=== PATIENT | male | born 1930 | race Caucasian/White ===

== ENCOUNTER 2017-05-08 17:07 | Inpatient (IN) | payer OTHER ==
[~2017-05-08] VITALS: Ht 175.3 cm; Wt 78.3 kg
[2017-05-08] MEDS ORDERED: CEFTRIAXONE SOD INJ 1 GM ADDVIAL IV STA (17:20)
[2017-05-08] MEDS ORDERED: AZITHROMYCIN 250 MG TAB PO STA (17:20)
[2017-05-08] MEDS ORDERED: METHYLPREDNISOLONE 125 MG VIAL IV STA (17:20)
--- NOTE | 2017-05-08 17:24 | EMERGENCY ROOM VISIT NOTE ---
History Report prepared by Lashell: Halima Jimenez Under the Supervision of: Dr. Deven Christianson M.D. First contact with patient: 17:09 Stated Complaint: GEN ILLNESS History of Present Illness The patient is an 87 year old white male with a past medical history of myasthenia gravis, hypertension and BPH who presents to the ED with a cc of persistent flu like symptoms beginning earlier today. EMS reports the patient underwent a right hip replacement surgery 3 weeks ago in [place]. He was taken to [facility] for rehabilitation, but was released home with his daughter recently. The patient states his hip has been feeling well and denies any drainage or redness around the incision site. Today he had trouble getting around and appeared to be wheezing and coughing so EMS was called. Positive productive cough with yellow sputum. Negative shortness of breath, hemoptysis, weakness or swelling in the arms or legs. The patient denies any history of COPD or asthma. He does not wear Oxygen at home. He notes he takes daily Mestinon for his history of MG. Source of History: patient, EMS Onset: earlier today Position: other (global) Timing: other (persistent) Associated Symptoms: + cough, No SOB, No weakness (or swelling in the arms or legs) Review of Systems See HPI for pertinent positives and negatives. A total of ten systems were reviewed and were otherwise negative. Past Medical & Surgical Medical Problems: (1) BPH (benign prostatic hyperplasia) (2) Hypertension (3) Myasthenia gravis Surgical Problems: (1) History of hip replacement Social History Alcohol Use: none Drug Use: none Marital Status: Housing Status: lives with family Occupation Status: retired Current/Historical Medications Scheduled Aspirin (Aspirin Ec), 325 MG PO DAILY Calcium (Calcium), 500 MG PO DAILY Cholecalciferol (Vitamin D3), 2,000 UNITS PO DAILY Finasteride (Proscar), 5 MG PO QPM Zee (Zingiber Officinalis) (Zee Root), 500 MG PO DAILY Glycopyrrolate (Glycopyrrolate), 1 MG PO TIDM Metoprolol Tartrate (Lopressor) (Lopressor), 25 MG PO BID Mycophenolate Mofetil (Cellcept), 1,000 MG PO BID Niacin (Niacin), 250 MG PO DAILY [place]-3 Fatty Acids (Fish Oil), 1,000 MG PO DAILY Potassium Chloride (Micro-K Ext Rel), 10 MEQ PO BIDM Pyridostigmine [place] (Mestinon), 60 MG PO TIDM Tamsulosin Hcl (Flomax), 0.4 MG PO QPM Ubiquinol (Ubiquinol), 100 MG PO DAILY Scheduled PRN Benzonatate (Tessalon Perles), Unknown Dose PO DIRECTED PRN for Cough Allergies Coded Allergies: No Known Allergies (Unverified , 05/08/17) Physical Exam Vital Signs Date Time Temp Pulse Resp B/P (MAP) Pulse Ox O2 Delivery O2 Flow Rate FiO2 05/08/17 18:11 84 05/08/17 18:05 85 18 93 Nasal Cannula 4.0 05/08/17 18:00 84 25 141/81 92 Nebulizer 05/08/17 17:41 93 Nasal Cannula 2.0 05/08/17 17:40 89 Room Air 05/08/17 17:16 37.0 80 20 141/88 93 Room Air Physical Exam GENERAL: Awake, alert, well-appearing, NAD HENT: Normocephalic, atraumatic. Edentulous. EYES: Purulent drainage from the right eye. No conjunctival injection. Sclera non-icteric. NECK: Supple. No nuchal rigidity. FROM. RESPIRATORY: Wheezing throughout, no rhonchi, crackles CARDIAC: RRR, no MRG ABDOMEN: Soft, NTND, BS+ MSK: No chest wall TTP, no LE edema. Incisional scar along right hip, well healing, NVI distally. NEURO: GCS 15, CN 2-12 intact, moves all 4s on command SKIN: No rash or jaundice noted. Medical Decision & Procedures ER Provider Diagnostic Interpretation: Radiology results as stated below per my review and radiologist interpretation: CHEST ONE VIEW PORTABLE CLINICAL HISTORY: 87 years-old Male presenting with EVALUATE RESPIRATORY DISTRESS.DYSPNEA. TECHNIQUE: Portable upright AP view of the chest was obtained. COMPARISON: None. FINDINGS: Prominence and tortuosity of the thoracic aorta. Cardiac silhouette normal in size. Bibasilar opacities, right greater than left. No large effusion or pneumothorax. Irregularity of the proximal metaphysis of the left humerus may relate to prior injury or degenerative change. Upper abdomen normal. IMPRESSION: 1. Bibasilar opacities, right greater than left. This could represent atelectasis, aspiration, or pneumonia. Electronically signed by: Blair Samano M.D. 05/08/2017 6:29 PM Laboratory Results 05/08/17 16:59 Red Blood Count 3.76, Mean Corpuscular Volume 91.8, Mean Corpuscular Hemoglobin 31.1, Mean Corpuscular Hemoglobin Concent 33.9, Mean Platelet Volume 9.9, Neutrophils (%) (Auto) 76.9, Lymphocytes (%) (Auto) 8.6, Monocytes (%) (Auto) 13.6, Eosinophils (%) (Auto) 0.2, Basophils (%) (Auto) 0.1, Neutrophils # (Auto ) 16.30, Lymphocytes # (Auto) 1.82, Monocytes # (Auto) 2.89, Eosinophils # (Auto ) 0.04, Basophils # (Auto) 0.02 05/08/17 16:59 Test 05/08/17 16:59 05/08/17 17:40 05/08/17 18:00 White Blood Count 21.20 K/uL (4.8-10.8) Red Blood Count 3.76 M/uL (4.7-6.1) Hemoglobin 11.7 g/dL (14.0-18.0) Hematocrit 34.5 % (42-52) Mean Corpuscular Volume 91.8 fL (80-100) Mean Corpuscular Hemoglobin 31.1 pg (25-34) Mean Corpuscular Hemoglobin Concent 33.9 g/dl (32-36) Platelet Count 462 K/uL (130-400) Mean Platelet Volume 9.9 fL (7.4-10.4) Neutrophils (%) (Auto) 76.9 % Lymphocytes (%) (Auto) 8.6 % Monocytes (%) (Auto) 13.6 % Eosinophils (%) (Auto) 0.2 % Basophils (%) (Auto) 0.1 % Neutrophils # (Auto) 16.30 K/uL (1.4-6.5) Lymphocytes # (Auto) 1.82 K/uL (1.2-3.4) Monocytes # (Auto) 2.89 K/uL (0.11-0.59) Eosinophils # (Auto) 0.04 K/uL (0-0.5) Basophils # (Auto) 0.02 K/uL (0-0.2) RDW Standard Deviation 45.5 fL (36.4-46.3) RDW Coefficient of Variation 13.8 % (11.5-14.5) Immature Granulocyte % (Auto) 0.6 % Immature Granulocyte # (Auto) 0.13 K/uL (0.00-0.02) Prothrombin Time 11.9 SECONDS (9.0-12.0) Prothromb Time International Ratio 1.1 (0.9-1.1) Activated Partial Thromboplast Time 30.6 SECONDS (21.0-31.0) Partial Thromboplastin Ratio 1.2 Anion Gap 10.0 mmol/L (3-11) Est Creatinine Clear Calc Drug Dose 85.8 ml/min Estimated GFR () 104.1 Estimated GFR (Non- 89.9 BUN/Creatinine Ratio 17.5 (10-20) Calcium Level 8.6 mg/dl (8.5-10.1) Total Bilirubin 0.4 mg/dl (0.2-1) Aspartate Amino Transf (AST/SGOT) 13 U/L (15-37) Alanine Aminotransferase (ALT/SGPT) 20 U/L (12-78) Alkaline Phosphatase 167 U/L (45-117) Troponin I < 0.015 ng/ml (0-0.045) Pro-B-Type Natriuretic Peptide 1022 pg/ml (0-1800) Total Protein 6.6 gm/dl (6.4-8.2) Albumin 2.5 gm/dl (3.4-5.0) Globulin 4.1 gm/dl (2.5-4.0) Albumin/Globulin Ratio 0.6 (0.9-2) Venous Blood pH 7.47 (7.36-7.41) Venous Blood Partial Pressure CO2 39 mmHg (38.0-50.0) Venous Blood Partial Pressure O2 52 mmHg Venous Blood HCO3 28 mmol/L Venous Blood Oxygen Saturation 86.9 % Venous Blood Base Excess 4.0 mEq/L Laboratory results reviewed by me Medications Administered Medications (Trade) Dose Ordered Sig/Magi Route Start Time Stop Time Status Last Admin Dose Admin Albuterol/ Ipratropium (Duoneb) 12 ml ONE ONCE INH 05/08/17 17:30 05/08/17 17:31 DC 05/08/17 17:30 12 ML Azithromycin (Zithromax Tab) 500 mg NOW STAT PO 05/08/17 17:20 05/08/17 17:25 DC 05/08/17 17:57 500 MG Ceftriaxone Sodium (Rocephin Inj) 1 gm NOW STAT IV 05/08/17 17:20 05/08/17 17:25 DC 05/08/17 17:59 1 GM Methylprednisolone Sodium Succinate (Solu-Medrol IV) 125 mg NOW STAT IV 05/08/17 17:20 05/08/17 17:25 DC 05/08/17 17:59 125 MG ECG Indication: weakness Rate (beats per minute): 89 Rhythm: sinus rhythm Findings: PAC, other (Normal intervals. No STS changes or T-wave inversions. Ectopy seen) ED Course 1713: The patient was evaluated in room A2. A complete history and physical exam was performed. 1739: Nursing informed me the patient has several family members who were sick recently with URI symptoms. 1810: I spoke with the patients family and updated them on the patients results so far. I discussed my recommendation he remain in the hospital for further evaluation and management and he and his family verbalized complete understanding and agreement. 1842: I discussed the patients case with Dr. Covington, [facility]ist. The patient will be further evaluated. Medical Decision The patient is an 87 year old white male with a past medical history of myasthenia gravis, hypertension and BPH who presents to the ED with a cc of flu like symptoms beginning earlier today. Triage Nursing notes reviewed The patient's presentation and history were concerning for shortness of breath. Differential diagnosis: Etiologies such as infections, reactive airway disease, pneumonia, pneumothorax , COPD, CHF, cardiac ischemia, pulmonary embolism, musculoskeletal, gastrointestinal, as well as others were entertained. Patient was seen and evaluated at the bedside. Patient complains of some mild generalized fatigue and upper respiratory type symptoms. At the bedside patient did have some purulent sputum. Purportedly in the field the patient was at 88% was placed on oxygen. Patient did have a recent right total hip replacement completed in [place]. Patient denies any history of DVT or PE, lower extremity swelling or hemoptysis. Given the patient's infectious symptoms along with diffuse wheezing more likely to be infectious in nature especially given his exam. He is at risk for possible PE given his recent travel and surgery however I believe this to be most likely cause this time. Patient did have blood work that was completed along with EKG, troponin, chest x -ray. Patient was given abx and was given duo nebs as well as steroids given his wheezing. Per family members have been URI symptoms throughout the home. He is currently rehabbing and being helped by his daughter and son-in-law given his recent orthopedic surgery. Patient did have a chest x-ray that was closely concerning for atelectasis versus pneumonia versus aspiration. I did touch base with the patient states that he did have a 3 day hospital stay for his right hip and had been in inpatient rehabilitation for approximately 2 weeks. I did discuss with the hospitalists and they will decide about broadening out his antibiotic coverage for healthcare associated pneumonia. Patient white blood cell count was 21. Patient was requiring a touch of oxygen. Patient did get given nebs and Solu- Medrol for his wheezing. Patient did have mild hypokalemia which was repleted as well as mag. I did discuss case with the Hospital the patient was admitted for further evaluation and treatment. Medication Reconcilliation Current Medication List: was personally reviewed by me Blood Pressure Screening Patient's blood pressure: Elevated blood pressure Blood pressure disposition: Referred to PCP Consults Time Called: 1836 Consulting Physician: Shahbaz Stone Hospitalist Returned Call: [phone] I discussed the patients case with Shahbaz Stone Hospitalist. The patient will be further evaluated. Impression Primary Impression: Acute respiratory failure with hypoxia Additional Impressions: Pneumonia Hypokalemia Scribe Attestation The scribe's documentation has been prepared under my direction and personally reviewed by me in its entirety. I confirm that the note above accurately reflects all work, treatment, procedures, and medical decision making performed by me. Departure Information Dispostion Being Evaluated By Hospitalist Problem Qualifiers Additional Impressions: Pneumonia Pneumonia type: due to unspecified organism Laterality: right Lung location : lower lobe of lung Qualified Codes: J18.1 - Lobar pneumonia, unspecified organism
[2017-05-08] MEDS ORDERED: ALBUT/IPRATROP 3MG/0.5MG NEB 3 ML VIAL INH ONE (17:30)
[2017-05-08 17:38] LABS: BASO % 0.1 %; BASO ABS # 0.02 K/uL (0-0.2); COMPLETE YES; EOS % 0.2 %; HEMATOCRIT 34.5 % (42-52); IG% 0.6 %; LYMPH % 8.6 %; LYMPH ABS # 1.82 K/uL (1.2-3.4); MEAN CELL VOLUME 91.8 fL (80-100); MEAN CORPUSCULAR HEMOGLOBIN 31.1 pg (25-34); MEAN CORPUSCULAR HGB CONC 33.9 g/dl (32-36); MEAN PLATELET VOLUME 9.9 fL (7.4-10.4); MONO % 13.6 %; NEUT % 76.9 %; PLATELET COUNT 462 K/uL (130-400); RED BLOOD COUNT 3.76 M/uL (4.7-6.1)
[2017-05-08 17:45] LABS: INR 1.1 (0.9-1.1); PARTIAL THROMBOPLASTIN RATIO 1.2; PROTHROMBIN TIME (PATIENT) 11.9 SECONDS (9.0-12.0)
[2017-05-08 17:46] LABS: ALT/SGPT 20 U/L (12-78); AST/SGOT 13 U/L (15-37); BLOOD UREA NITROGEN 11 mg/dl (7-18); BUN/CREATININE RATIO 17.5 (10-20); CALCIUM 8.6 mg/dl (8.5-10.1); CARBON DIOXIDE 26 mmol/L (21-32); CHLORIDE 98 mmol/L (98-107); CREATININE 0.63 mg/dl (0.60-1.40); GLUCOSE 135 mg/dl (70-99); SODIUM 134 mmol/L (136-145)
[2017-05-08 17:50] LABS: VEN BLD GAS O2 SATURATION 86.9 %
[2017-05-08 17:51] LABS: ALB/GLOB RATIO 0.6 (0.9-2); ALKALINE PHOSPHATASE 167 U/L (45-117)
[2017-05-08] MEDS ORDERED: PYRI60TA2 PO (18:01)
[2017-05-08] MEDS ORDERED: UBIQ1CAP8 PO (18:01)
[2017-05-08] MEDS ORDERED: NIAC250T8 PO (18:01)
[2017-05-08] MEDS ORDERED: TAMS0.4C38 PO (18:01)
[2017-05-08] MEDS ORDERED: OMEG10002 PO (18:01)
[2017-05-08] MEDS ORDERED: METO25TA56 PO (18:01)
[2017-05-08] MEDS ORDERED: BENZ100C84 PO (18:01)
[2017-05-08] MEDS ORDERED: ASPI325T39 PO (18:01)
[2017-05-08] MEDS ORDERED: CALC500T83 PO (18:01)
[2017-05-08] MEDS ORDERED: RBN1 PO (18:01)
[2017-05-08] MEDS ORDERED: GING500C2 PO (18:01)
[2017-05-08] MEDS ORDERED: MYCO500T4 PO (18:01)
[2017-05-08] MEDS ORDERED: POTA10CA28 PO (18:01)
[2017-05-08] MEDS ORDERED: FINA5TAB4 PO (18:01)
[2017-05-08] MEDS ORDERED: CHOL20007 PO (18:01)
[2017-05-08 18:05] VITALS: PULSE 85; O2SAT 93
[2017-05-08] MEDS ORDERED: MAGNESIUM OXIDE 400 MG TAB PO STA (18:17)
[2017-05-08] MEDS ORDERED: POTASSIUM CHLORIDE 20 MEQ TABCR PO STA (18:17)
--- NOTE | 2017-05-08 18:31 | DIAGNOSTIC IMAGING REPORT ---
CHEST ONE VIEW PORTABLE CLINICAL HISTORY: 87 years-old Male presenting with EVALUATE RESPIRATORY DISTRESS.DYSPNEA. TECHNIQUE: Portable upright AP view of the chest was obtained. COMPARISON: None. FINDINGS: Prominence and tortuosity of the thoracic aorta. Cardiac silhouette normal in size. Bibasilar opacities, right greater than left. No large effusion or pneumothorax. Irregularity of the proximal metaphysis of the left humerus may relate to prior injury or degenerative change. Upper abdomen normal. IMPRESSION: 1. Bibasilar opacities, right greater than left. This could represent atelectasis, aspiration, or pneumonia. Electronically signed by: Blair Samano M.D. 05/08/2017 6:29 PM Dictated Date/Time: 05/08/2017 6:28 PM
[2017-05-08] MEDS ORDERED: ACETAMINOPHEN 325 MG TAB PO PRN (20:15)
[2017-05-08] MEDS ORDERED: VANCOMYCIN CONSULT ACTIVE PRN (21:15)
--- NOTE | 2017-05-08 21:27 | History and Physical ---
History & Physical Date & Time of Service: May 08, 2017 at 20:34 Chief Complaint: Gen Illness Primary Care Physician: No Doctor, Assigned History of Present Illness Source: patient, family, hospital records 87 year old male with a past medical history of myasthenia gravis, hypertension and BPH, recent right hip surgery presents to the ED with of greenish productive cough. Pt had a hip surgery done 3 weeks ago [facility] He was transferred to [facility] for rehab. As per family pt has been doing well with rehab. but in the last few days he has been having a greenish productive cough that is getting worst associated with wheezing and chills. Pt said that today he feels very weak and nauseated. Granddaughter said that he had diarrhea yesterday. Pt has been around family member with URI symptoms. Denies any chest pain, palpitation, fever, dizziness and SOB. Past Medical/Surgical History BPH Myasthenia gravis HTN Right Hip replacement Social History Smoking Status: Former Smoker Drug Use: none Marital Status: Occupational Status: retired Allergies Coded Allergies: No Known Allergies (Unverified , 05/08/17) Home Medications Scheduled Aspirin (Aspirin Ec), 325 MG PO DAILY Calcium (Calcium), 500 MG PO DAILY Cholecalciferol (Vitamin D3), 2,000 UNITS PO DAILY Finasteride (Proscar), 5 MG PO QPM Zee (Zingiber Officinalis) (Zee Root), 500 MG PO DAILY Glycopyrrolate (Glycopyrrolate), 1 MG PO TIDM Metoprolol Tartrate (Lopressor) (Lopressor), 25 MG PO BID Mycophenolate Mofetil (Cellcept), 1,000 MG PO BID Niacin (Niacin), 250 MG PO DAILY [place]-3 Fatty Acids (Fish Oil), 1,000 MG PO DAILY Potassium Chloride (Micro-K Ext Rel), 10 MEQ PO BIDM Pyridostigmine [place] (Mestinon), 60 MG PO TIDM Tamsulosin Hcl (Flomax), 0.4 MG PO QPM Ubiquinol (Ubiquinol), 100 MG PO DAILY Scheduled PRN Benzonatate (Tessalon Perles), Unknown Dose PO DIRECTED PRN for Cough Review of Systems Constitutional: + chills, + weakness, + fatigue, No fever Eyes: No worsening of vision ENT: + nasal symptoms (nasal congestion), + problem reported (Decrease hearing function), No sore throat Respiratory: + cough, + sputum, + wheezing Cardiovascular: No chest pain, No claudication, No palpitations Abdomen: + nausea, No pain, No vomiting Musculoskeletal: + joint pain, No calf pain Genitourinary - Male: No dysuria Neurologic: No memory loss, No paralysis Endocrine: No excessive thirst Hematologic / Lymphatic: No abnormal bleeding/bruising Integumentary: No rash, No itch Physical Exam Vital Signs Date Time Temp Pulse Resp B/P (MAP) Pulse Ox O2 Delivery O2 Flow Rate FiO2 05/08/17 19:08 117 30 188/59 91 Nasal Cannula 2.0 05/08/17 18:11 84 05/08/17 18:05 85 18 93 Nasal Cannula 4.0 05/08/17 18:00 84 25 141/81 92 Nebulizer 05/08/17 17:41 93 Nasal Cannula 2.0 05/08/17 17:40 89 Room Air 05/08/17 17:16 37.0 80 20 141/88 93 Room Air General Appearance: WD/WN, no apparent distress Head: normocephalic, atraumatic Eyes: PERRL, EOMI ENT: + nasal congestion, + pertinent finding (decrease hearing function) Neck: no JVD, trachea midline Respiratory/Chest: no respiratory distress, no accessory muscle use, + wheezing Cardiovascular: no JVD, + tachycardia Abdomen/GI: normal bowel sounds, non tender, soft Back: no CVA tenderness Extremities/Musculoskelatal: no calf tenderness Neurologic/Psych: no motor/sensory deficits, alert, normal mood/affect Skin: warm/dry, no rash Diagnostics Laboratory Results Results Past 24 Hours Test 05/08/17 16:59 05/08/17 17:40 05/08/17 18:00 Range/Units White Blood Count 21.20 4.8-10.8 K/uL Red Blood Count 3.76 4.7-6.1 M/uL Hemoglobin 11.7 14.0-18.0 g/dL Hematocrit 34.5 42-52 % Mean Corpuscular Volume 91.8 80-100 fL Mean Corpuscular Hemoglobin 31.1 25-34 pg Mean Corpuscular Hemoglobin Concent 33.9 32-36 g/dl Platelet Count 462 130-400 K/uL Mean Platelet Volume 9.9 7.4-10.4 fL Neutrophils (%) (Auto) 76.9 % Lymphocytes (%) (Auto) 8.6 % Monocytes (%) (Auto) 13.6 % Eosinophils (%) (Auto) 0.2 % Basophils (%) (Auto) 0.1 % Neutrophils # (Auto) 16.30 1.4-6.5 K/uL Lymphocytes # (Auto) 1.82 1.2-3.4 K/uL Monocytes # (Auto) 2.89 0.11-0.59 K/uL Eosinophils # (Auto) 0.04 0-0.5 K/uL Basophils # (Auto) 0.02 0-0.2 K/uL RDW Standard Deviation 45.5 36.4-46.3 fL RDW Coefficient of Variation 13.8 11.5-14.5 % Immature Granulocyte % (Auto) 0.6 % Immature Granulocyte # (Auto) 0.13 0.00-0.02 K/uL Prothrombin Time 11.9 9.0-12.0 SECONDS Prothromb Time International Ratio 1.1 0.9-1.1 Activated Partial Thromboplast Time 30.6 21.0-31.0 SECONDS Partial Thromboplastin Ratio 1.2 Sodium Level 134 136-145 mmol/L Potassium Level 3.0 3.5-5.1 mmol/L Chloride Level 98 98-107 mmol/L Carbon Dioxide Level 26 21-32 mmol/L Anion Gap 10.0 3-11 mmol/L Blood Urea Nitrogen 11 7-18 mg/dl Creatinine 0.63 0.60-1.40 mg/dl Est Creatinine Clear Calc Drug Dose 85.8 ml/min Estimated GFR () 104.1 Estimated GFR (Non- 89.9 BUN/Creatinine Ratio 17.5 10-20 Random Glucose 135 70-99 mg/dl Calcium Level 8.6 8.5-10.1 mg/dl Total Bilirubin 0.4 0.2-1 mg/dl Aspartate Amino Transf (AST/SGOT) 13 15-37 U/L Alanine Aminotransferase (ALT/SGPT) 20 12-78 U/L Alkaline Phosphatase 167 45-117 U/L Troponin I < 0.015 0-0.045 ng/ml Pro-B-Type Natriuretic Peptide 1022 0-1800 pg/ml Total Protein 6.6 6.4-8.2 gm/dl Albumin 2.5 3.4-5.0 gm/dl Globulin 4.1 2.5-4.0 gm/dl Albumin/Globulin Ratio 0.6 0.9-2 Venous Blood pH 7.47 7.36-7.41 Venous Blood Partial Pressure CO2 39 38.0-50.0 mmHg Venous Blood Partial Pressure O2 52 mmHg Venous Blood HCO3 28 mmol/L Venous Blood Oxygen Saturation 86.9 % Venous Blood Base Excess 4.0 mEq/L Influenza Type A Antigen Neg for Influ A NEG Influenza Type B Antigen Neg for Influ B NEG Microbiology Results 05/08/17 Blood Culture, Ordered Pending 05/08/17 Blood Culture, Ordered Pending 05/08/17 Group A Streptococcus Screen - Final, Resulted SPECIMEN NEGATIVE FOR GROUP A BETA ST... 05/08/17 Group A Streptococcus Screen (ANNIKA), Resulted Pending Diagnostic Radiology CHEST ONE VIEW PORTABLE CLINICAL HISTORY: 87 years-old Male presenting with EVALUATE RESPIRATORY DISTRESS.DYSPNEA. TECHNIQUE: Portable upright AP view of the chest was obtained. COMPARISON: None. FINDINGS: Prominence and tortuosity of the thoracic aorta. Cardiac silhouette normal in size. Bibasilar opacities, right greater than left. No large effusion or pneumothorax. Irregularity of the proximal metaphysis of the left humerus may relate to prior injury or degenerative change. Upper abdomen normal. IMPRESSION: 1. Bibasilar opacities, right greater than left. This could represent atelectasis, aspiration, or pneumonia. Electronically signed by: Blair Samano M.D. 05/08/2017 6:29 PM Dictated Date/Time: 05/08/2017 6:28 PM The status of this report is Signed. Impression Assessment and Plan Sepsis Pneumonia Meet sepsis criteria on admission present with Tachycardia, tachypneic, Elevated WBC CXR showed bibasilar opacities, right greater than left flu negative Received Rocephin and Zithromax and solumedrol 125mg in the ER Since coming from inpatient rehab and has hip surgery 3 weeks ago will change abx Will do Vanco and continue rocephin Check Blood cx and sputum cx Will do prednisone, guaifenesin and duoneb treatment Hypokalemia K replaced Monitor BMP Myasthenia Gravis On pyridostigmine 60mg TID taking with Glycopyrrolate 1 mg TID, cellcept 1g BID Stable Right Hip replacement stable Continue PT/OT HTN Continue metoprolol Monitor BP BPH Continue flomax and finasteride DVT px on Lovenox subq Code status Full no mech ventilation as per my discussion to pt and family Disposition Will go back to [facility] once medically stable Level of Care Med/Surg Resuscitation Status FULL NO MECH VENTILATION VTE Prophylaxis VTE Risk Assessment Done? Y/N: Yes Risk Level: Moderate Given or contraindicated: Enoxaparin (Lovenox)SQ
[2017-05-08] MEDS ORDERED: VANCOMYCIN INJ 2,000 MG in SODIUM CHLORIDE 0.9% 500ML 500 ML IV SCH (22:00)
--- NOTE | 2017-05-08 22:04 | Pharmacy Progress Note ---
Pharmacy Antibiotic Consult Date of Service: May 08, 2017. Pharmacy Dosing Scope Pharmacy is consulted to initiate vancomycin IV dosing therapy, order appropriate labs and adjust drug dose/frequency. Subjective The patient is a 87 year old male admitted on May 08, 2017 at 20:10 with possible pnx, sepsis. Recent hospital stay for hip replacement 3 weeks ago, then rehab at [facility]. Objective Height (Feet): 5 Height (Inches): 9 Weight (Kilograms): 83.10 Lab Results (24hrs): Test 05/08/17 16:59 05/08/17 17:40 05/08/17 18:00 White Blood Count 21.20 K/uL (4.8-10.8) Red Blood Count 3.76 M/uL (4.7-6.1) Hemoglobin 11.7 g/dL (14.0-18.0) Hematocrit 34.5 % (42-52) Mean Corpuscular Volume 91.8 fL (80-100) Mean Corpuscular Hemoglobin 31.1 pg (25-34) Mean Corpuscular Hemoglobin Concent 33.9 g/dl (32-36) Platelet Count 462 K/uL (130-400) Mean Platelet Volume 9.9 fL (7.4-10.4) Neutrophils (%) (Auto) 76.9 % Lymphocytes (%) (Auto) 8.6 % Monocytes (%) (Auto) 13.6 % Eosinophils (%) (Auto) 0.2 % Basophils (%) (Auto) 0.1 % Neutrophils # (Auto) 16.30 K/uL (1.4-6.5) Lymphocytes # (Auto) 1.82 K/uL (1.2-3.4) Monocytes # (Auto) 2.89 K/uL (0.11-0.59) Eosinophils # (Auto) 0.04 K/uL (0-0.5) Basophils # (Auto) 0.02 K/uL (0-0.2) RDW Standard Deviation 45.5 fL (36.4-46.3) RDW Coefficient of Variation 13.8 % (11.5-14.5) Immature Granulocyte % (Auto) 0.6 % Immature Granulocyte # (Auto) 0.13 K/uL (0.00-0.02) Prothrombin Time 11.9 SECONDS (9.0-12.0) Prothromb Time International Ratio 1.1 (0.9-1.1) Activated Partial Thromboplast Time 30.6 SECONDS (21.0-31.0) Partial Thromboplastin Ratio 1.2 Sodium Level 134 mmol/L (136-145) Potassium Level 3.0 mmol/L (3.5-5.1) Chloride Level 98 mmol/L (98-107) Carbon Dioxide Level 26 mmol/L (21-32) Anion Gap 10.0 mmol/L (3-11) Blood Urea Nitrogen 11 mg/dl (7-18) Creatinine 0.63 mg/dl (0.60-1.40) Est Creatinine Clear Calc Drug Dose 85.8 ml/min Estimated GFR () 104.1 Estimated GFR (Non- 89.9 BUN/Creatinine Ratio 17.5 (10-20) Random Glucose 135 mg/dl (70-99) Calcium Level 8.6 mg/dl (8.5-10.1) Total Bilirubin 0.4 mg/dl (0.2-1) Aspartate Amino Transf (AST/SGOT) 13 U/L (15-37) Alanine Aminotransferase (ALT/SGPT) 20 U/L (12-78) Alkaline Phosphatase 167 U/L (45-117) Troponin I < 0.015 ng/ml (0-0.045) Pro-B-Type Natriuretic Peptide 1022 pg/ml (0-1800) Total Protein 6.6 gm/dl (6.4-8.2) Albumin 2.5 gm/dl (3.4-5.0) Globulin 4.1 gm/dl (2.5-4.0) Albumin/Globulin Ratio 0.6 (0.9-2) Venous Blood pH 7.47 (7.36-7.41) Venous Blood Partial Pressure CO2 39 mmHg (38.0-50.0) Venous Blood Partial Pressure O2 52 mmHg Venous Blood HCO3 28 mmol/L Venous Blood Oxygen Saturation 86.9 % Venous Blood Base Excess 4.0 mEq/L Influenza Type A Antigen Neg for Influ A (NEG) Influenza Type B Antigen Neg for Influ B (NEG) Micro Results: Blood and throat cx are pending. Recent Pertinent Medications Rocephin 1gm IV daily and Zithromax 500mg po x 1 Assessment & Plan Vancomycin: Loading dose: 2000 mg IV X 1 dose (24mg/kg) then: 1250 mg IV every 12 hours. Goal trough level estimate: between 15 - 20 mcg/mL. Peak and trough or random level has been ordered for: 05/10 prior to 1000 dose. Pharmacy will continue to follow and will adjust dose/frequency as necessary. Thank you
[2017-05-08] MEDS: SODIUM CHLORIDE 0.9% 1000ML 1,000 ML IV SCH (22:21)
[2017-05-08] MEDS: TAMSULOSIN HCL 0.4 MG CAP PO SCH (22:54)
[2017-05-08] MEDS: FINASTERIDE 5 MG TAB PO SCH (22:55)
[2017-05-08] MEDS: METOPROLOL TARTRATE 25 MG TAB PO SCH (22:55)
[2017-05-08 23:22] VITALS: BP 132/61; PULSE 101; TEMP 37; O2SAT 95; Ht 175.3 cm; Wt 78.3 kg
[2017-05-08 23:31] LABS: URINE APPEARANCE CLOUDY (CLEAR); URINE BILIRUBIN NEG (NEG); URINE COLOR YELLOW; URINE EPITHELIAL CELL AUTO >30 /lpf (0-5); URINE NITRITE NEG (NEG); UROBILINOGEN NEG (NEG)
[2017-05-08 23:43] LABS: MANUAL MICROSCOPIC REQUIRED? NO; REVIEW REQ? YES
[2017-05-08 23:53] VITALS: BP 136/77; PULSE 84; TEMP 36.8; O2SAT 95
[2017-05-08 23:55] LABS: URINE MUCUS PRESENT (NONE PRSENT); ZZUR CULT IF INDIC CLEAN CATCH YES
[2017-05-09] VITALS (8 sets, daily range): BP systolic 122–126; BP diastolic 65–70; PULSE 62–85; TEMP 36.5–36.9; O2SAT 93–98
[2017-05-09] MEDS: GUAIFENESIN 200 MG TAB PO SCH ×4 (00:03→18:17)
[2017-05-09] MEDS: LEVALBUTEROL 0.63MG/3 ML NEB INH SCH ×4 (01:49→18:51)
[2017-05-09 06:19] LABS: HEMATOCRIT 34.8 % (42-52); MEAN CELL VOLUME 92.8 fL (80-100); MEAN CORPUSCULAR HEMOGLOBIN 30.9 pg (25-34); MEAN CORPUSCULAR HGB CONC 33.3 g/dl (32-36); MEAN PLATELET VOLUME 9.6 fL (7.4-10.4); PLATELET COUNT 431 K/uL (130-400); RED BLOOD COUNT 3.75 M/uL (4.7-6.1); WHITE BLOOD COUNT 21.91 K/uL (4.8-10.8)
[2017-05-09 06:52] LABS: BUN/CREATININE RATIO 18.6 (10-20); CALCIUM 8.9 mg/dl (8.5-10.1); CREATININE 0.58 mg/dl (0.60-1.40); POTASSIUM 3.3 mmol/L (3.5-5.1)
[2017-05-09] MEDS: POTASSIUM CHLORIDE 10 MEQ TABCR PO SCH ×2 (07:39→18:16)
[2017-05-09] MEDS: NIACIN 500 MG TAB IMMEDIATE RELEASE PO SCH (07:39)
[2017-05-09] MEDS: METOPROLOL TARTRATE 25 MG TAB PO SCH ×2 (07:40→20:37)
[2017-05-09] MEDS: ENOXAPARIN 40 MG/0.4 ML SYR SQ SCH (07:40)
[2017-05-09] MEDS: ASPIRIN 325 MG ECTAB PO SCH (08:45)
[2017-05-09] MEDS: GLYCOPYRROLATE 1 MG TAB PO SCH ×3 (08:45→18:16)
[2017-05-09] MEDS ORDERED: NON-FORMULARY MEDICATION (Ubiquinol 100 MG) PO SCH (09:00)
[2017-05-09] MEDS ORDERED: VANCOMYCIN INJ 1,250 MG in SODIUM CHLORIDE 0.9% 250ML 250 ML IV SCH (10:00)
[2017-05-09] MEDS: PYRIDOSTIGMINE BROMIDE 60 MG TAB PO SCH ×3 (10:43→18:17)
[2017-05-09] MEDS: SODIUM CHLORIDE 0.9% 1000ML 1,000 ML IV SCH ×2 (10:43→18:11)
[2017-05-09] MEDS: CEFTRIAXONE SOD INJ 1 GM in DEXTROSE 5% ADD-VANTAGE 50ML 50 ML IV SCH (18:15)
--- NOTE | 2017-05-09 18:25 | Progress Note ---
Medicine Progress Note Date & Time of Visit: May 09, 2017 at ~ 15:00 . Subjective 87-year-old gentleman who spends his [place] in [facility] and [place] in [place]. He fell a few weeks ago and suffered a fracture of his right hip. Daughter lives [place], so he was transferred to [facility] [place] for rehabilitation. Admitted last night with pneumonia. Persistent cough, productive green sputum. No fever. No chest pain or shortness of breath. No nausea, vomiting, diarrhea. . Objective Last 8 Hrs Date Time Temp Pulse Resp B/P (MAP) Pulse Ox O2 Delivery O2 Flow Rate FiO2 05/09/17 15:10 36.5 71 20 126/70 (88) 93 Nasal Cannula 3.0 05/09/17 14:36 85 22 93 Nasal Cannula 3.0 Physical Exam: General- no acute distress ENT- hard of hearing Neck- no JVD Lungs- scattered rhonchi, diffuse moderate wheezing Heart- RRR Abdomen- + BS, soft, nontender Extremities- no pretibial edema or calf tenderness Neuro- alert, oriented . Laboratory Results: Last 24 Hours Test 05/08/17 22:45 05/09/17 06:02 Urine Color YELLOW Urine Appearance CLOUDY Urine pH 5.0 Urine Specific [place] 1.020 Urine Protein TRACE Urine Glucose (UA) NEG Urine Ketones 1+ Urine Occult Blood NEG Urine Nitrite NEG Urine Bilirubin NEG Urine Urobilinogen NEG Urine Leukocyte Esterase TRACE Urine WBC (Auto) 1-5 /hpf Urine RBC (Auto) 0-4 /hpf Urine Hyaline Casts (Auto) 0 /lpf Urine Epithelial Cells (Auto) >30 /lpf Urine Bacteria (Auto) 1+ Urine Renal Epithelial Cells /lpf Urine Crystals CALCIUM OXALATE Urine Mucus PRESENT White Blood Count 21.91 K/uL Red Blood Count 3.75 M/uL Hemoglobin 11.6 g/dL Hematocrit 34.8 % Mean Corpuscular Volume 92.8 fL Mean Corpuscular Hemoglobin 30.9 pg Mean Corpuscular Hemoglobin Concent 33.3 g/dl RDW Standard Deviation 46.9 fL RDW Coefficient of Variation 13.8 % Platelet Count 431 K/uL Mean Platelet Volume 9.6 fL Sodium Level 140 mmol/L Potassium Level 3.3 mmol/L Chloride Level 103 mmol/L Carbon Dioxide Level 29 mmol/L Anion Gap 8.0 mmol/L Blood Urea Nitrogen 11 mg/dl Creatinine 0.58 mg/dl Est Creatinine Clear Calc Drug Dose 93.2 ml/min Estimated GFR () 107.8 Estimated GFR (Non- 93.0 BUN/Creatinine Ratio 18.6 Random Glucose 153 mg/dl Calcium Level 8.9 mg/dl Date/Time Source Procedure Growth Status 05/08/17 21:49 Blood Blood Culture Pending Received 05/08/17 21:43 Blood Blood Culture Pending Received 05/08/17 22:25 Nasal MRSA DNA Surveillance Screen - Final Specimen Negative for MRSA by DNA Probe Complete 05/09/17 07:45 Sputum Expectorated Sputum Gram Stain Pending Received 05/09/17 07:45 Sputum Expectorated Sputum Sputum Culture Pending Received 05/08/17 22:45 Urine , Clean Catch Urine Culture Pending Received Assessment & Plan PNEUMONIA (health-care associated) Presented to ED with cough and shortness of breath. White count elevated. Chest x-ray demonstrated bibasilar densities. Blood cultures obtained in ED. Sputum culture pending. Initially received his azithromycin and ceftriaxone. Antibiotic regimen changed to vancomycin and ceftriaxone in light of recent hospitalizations. Receiving prednisone for associated bronchospasm. Nasal screen for MRSA negative. Therefore, MRSA pneumonia unlikely. Discontinue vancomycin. Add levofloxacin for atypical coverage. HYPOKALEMIA Serum potassium is 3.0. Replace. Follow. HYPERTENSION Hemodynamically stable. Continue metoprolol. MYASTHENIA GRAVIS Hold mycophenolate mofetil in light of current infection. Continue pyridostigmine. BPH Continue tamsulosin. S/P ORIF RIGHT HIP FRACTURE Continue PT/OT as able. VTE PROPHYLAXIS SQ enoxaparin. Ambulate. DISPOSITION Expected return to [facility] to continue rehabilitation once medically stable. . Current Inpatient Medications: Current Inpatient Medications Medications (Trade) Dose Ordered Sig/Magi Route Start Time Stop Time Status Last Admin Dose Admin Acetaminophen (Tylenol Tab) 650 mg Q4H PRN PO 05/08/17 20:15 06/07/17 20:14 Sodium Chloride 1,000 ml @ 80 mls/hr [id number] IV 05/08/17 21:30 06/07/17 21:29 05/09/17 10:43 80 MLS/HR Aspirin (Ecotrin Tab) 325 mg DAILY PO 05/09/17 09:00 06/08/17 08:59 05/09/17 08:45 325 MG Finasteride (Proscar Tab) 5 mg QPM PO 05/08/17 21:00 06/07/17 20:59 05/08/17 22:55 5 MG Metoprolol Tartrate (Lopressor Tab) 25 mg BID PO 05/08/17 21:00 06/07/17 20:59 05/09/17 07:40 25 MG Potassium Chloride (Klor-Con M10) 10 meq BIDM PO 05/09/17 08:00 06/08/17 07:59 05/09/17 07:39 10 MEQ Tamsulosin HCl (Flomax Cap) 0.4 mg QPM PO 05/08/17 21:00 06/07/17 20:59 05/08/17 22:54 0.4 MG Niacin (Niacin Tab) 250 mg DAILY PO 05/09/17 09:00 06/08/17 08:59 05/09/17 07:39 250 MG Guaifenesin (Organidin Nr Tab) 200 mg Q6 PO 05/09/17 00:00 06/08/17 00:00 05/09/17 10:44 200 MG Vancomycin HCl 1250 mg/Sodium Chloride 275 ml @ 125 mls/hr Q12H IV 05/09/17 10:00 05/16/17 09:59 05/09/17 10:43 125 MLS/HR Ceftriaxone Sodium 1 gm/ Dextrose 50 ml @ 100 mls/hr Q24H IV 05/09/17 18:00 05/15/17 17:59 Enoxaparin Sodium (Lovenox Inj) 40 mg QAM SQ 05/09/17 09:00 06/08/17 08:59 05/09/17 07:40 40 MG Vancomycin HCl (Consult) 1 ea UD PRN N/A 05/08/17 21:15 06/07/17 21:14 Prednisone (PredniSONE TAB) 40 mg DAILY PO 05/09/17 09:00 06/08/17 08:59 05/09/17 07:39 40 MG Levalbuterol (Xopenex 0.63 Mg/ 3 Ml Neb) 0.63 mg Q6R INH 05/09/17 03:00 06/08/17 02:59 05/09/17 14:34 0.63 MG Glycopyrrolate (Robinul Tab) 1 mg TIDM PO 05/09/17 08:00 06/08/17 07:59 05/09/17 10:44 1 MG Pyridostigmine [place] (Mestinon Tab) 60 mg TIDM PO 05/09/17 08:00 06/08/17 07:59 05/09/17 10:43 60 MG
[2017-05-09] MEDS: LEVOFLOXACIN / D5W 750 MG in PREMIXED IN D5W 150 ML IV SCH (18:59)
[2017-05-09] MEDS: TAMSULOSIN HCL 0.4 MG CAP PO SCH (20:37)
[2017-05-09] MEDS: FINASTERIDE 5 MG TAB PO SCH (20:37)
[2017-05-10] VITALS (8 sets, daily range): BP systolic 131–148; BP diastolic 62–76; PULSE 65–87; TEMP 36.3–36.4; O2SAT 92–96
[2017-05-10] MEDS: GUAIFENESIN 200 MG TAB PO SCH ×5 (00:15→23:22)
[2017-05-10] MEDS: LEVALBUTEROL 0.63MG/3 ML NEB INH SCH ×4 (01:50→19:52)
[2017-05-10 06:15] LABS: BUN/CREATININE RATIO 27.4 (10-20); CALCIUM 8.2 mg/dl (8.5-10.1); CREATININE 0.66 mg/dl (0.60-1.40); POTASSIUM 3.4 mmol/L (3.5-5.1)
[2017-05-10] MEDS: PYRIDOSTIGMINE BROMIDE 60 MG TAB PO SCH ×3 (08:38→17:17)
[2017-05-10] MEDS: ASPIRIN 325 MG ECTAB PO SCH (08:38)
[2017-05-10] MEDS: ENOXAPARIN 40 MG/0.4 ML SYR SQ SCH (08:38)
[2017-05-10] MEDS: GLYCOPYRROLATE 1 MG TAB PO SCH ×3 (08:38→17:17)
[2017-05-10] MEDS: POTASSIUM CHLORIDE 10 MEQ TABCR PO SCH ×2 (08:38→17:18)
[2017-05-10] MEDS: NIACIN 500 MG TAB IMMEDIATE RELEASE PO SCH (08:39)
[2017-05-10] MEDS: METOPROLOL TARTRATE 25 MG TAB PO SCH ×2 (08:39→20:29)
[2017-05-10] MEDS ORDERED: VANCOMYCIN TROUGH ONE (09:30)
[2017-05-10] MEDS: SODIUM CHLORIDE 0.9% 1000ML 1,000 ML IV SCH (11:16)
[2017-05-10] MEDS: CEFTRIAXONE SOD INJ 1 GM in DEXTROSE 5% ADD-VANTAGE 50ML 50 ML IV SCH (17:18)
[2017-05-10] MEDS: LEVOFLOXACIN / D5W 750 MG in PREMIXED IN D5W 150 ML IV SCH (18:19)
[2017-05-10] MEDS: FINASTERIDE 5 MG TAB PO SCH (20:28)
[2017-05-10] MEDS: TAMSULOSIN HCL 0.4 MG CAP PO SCH (20:28)
--- NOTE | 2017-05-10 20:50 | Progress Note ---
Medicine Progress Note Date & Time of Visit: May 10, 2017 at 14:20 . Subjective Persistent congested cough. No SOB. No CP. No nausea, vomiting, diarrhea. No fever. . Objective Last 8 Hrs Date Time Temp Pulse Resp B/P (MAP) Pulse Ox O2 Delivery O2 Flow Rate FiO2 05/10/17 19:52 70 16 95 Room Air 05/10/17 17:09 93 Room Air 05/10/17 15:09 36.3 75 18 135/62 (86) 92 05/10/17 14:08 87 16 96 Nasal Cannula 2.0 Physical Exam: General- lying in bed, no acute distress ENT- hard of hearing Neck- no JVD Lungs- scattered rhonchi, diffuse moderate wheezing Heart- RRR Abdomen- + BS, soft, nontender Extremities- no pretibial edema or calf tenderness; right hip incision well- healed Neuro- alert, oriented . Laboratory Results: Last 24 Hours Test 05/10/17 05:38 Sodium Level 139 mmol/L Potassium Level 3.4 mmol/L Chloride Level 104 mmol/L Carbon Dioxide Level 26 mmol/L Anion Gap 9.0 mmol/L Blood Urea Nitrogen 18 mg/dl Creatinine 0.66 mg/dl Est Creatinine Clear Calc Drug Dose 81.9 ml/min Estimated GFR () 102.2 Estimated GFR (Non- 88.2 BUN/Creatinine Ratio 27.4 Random Glucose 129 mg/dl Calcium Level 8.2 mg/dl Assessment & Plan PNEUMONIA (health-care associated) Presented to ED with cough and shortness of breath. White count elevated. Chest x-ray demonstrated bibasilar densities. Blood cultures obtained in ED. Sputum culture pending. Initially received his azithromycin and ceftriaxone. Antibiotic regimen changed to vancomycin and ceftriaxone in light of recent hospitalizations. Prednisone started for associated bronchospasm. Nasal screen for MRSA negative. Therefore, MRSA pneumonia unlikely. Discontinued vancomycin. Added levofloxacin for atypical coverage. Continue ceftriaxone. HYPOKALEMIA Serum potassium as low as 3.0. Replace. Follow. HYPERTENSION Hemodynamically stable. Continue metoprolol. MYASTHENIA GRAVIS Hold mycophenolate mofetil in light of current infection. Continue pyridostigmine. BPH Continue tamsulosin. S/P ORIF RIGHT HIP FRACTURE Continue PT/OT as able. VTE PROPHYLAXIS SQ enoxaparin. Ambulate. DISPOSITION Expected return to [facility] to continue rehabilitation once medically stable. . Current Inpatient Medications: Current Inpatient Medications Medications (Trade) Dose Ordered Sig/Magi Route Start Time Stop Time Status Last Admin Dose Admin Acetaminophen (Tylenol Tab) 650 mg Q4H PRN PO 05/08/17 20:15 06/07/17 20:14 05/10/17 00:20 650 MG Sodium Chloride 1,000 ml @ 80 mls/hr [id number] IV 05/08/17 21:30 06/07/17 21:29 05/10/17 11:16 80 MLS/HR Aspirin (Ecotrin Tab) 325 mg DAILY PO 05/09/17 09:00 06/08/17 08:59 05/10/17 08:38 325 MG Finasteride (Proscar Tab) 5 mg QPM PO 05/08/17 21:00 06/07/17 20:59 05/10/17 20:28 5 MG Metoprolol Tartrate (Lopressor Tab) 25 mg BID PO 05/08/17 21:00 06/07/17 20:59 05/10/17 20:29 25 MG Potassium Chloride (Klor-Con M10) 10 meq BIDM PO 05/09/17 08:00 06/08/17 07:59 05/10/17 17:18 10 MEQ Tamsulosin HCl (Flomax Cap) 0.4 mg QPM PO 05/08/17 21:00 06/07/17 20:59 05/10/17 20:28 0.4 MG Niacin (Niacin Tab) 250 mg DAILY PO 05/09/17 09:00 06/08/17 08:59 05/10/17 08:39 250 MG Guaifenesin (Organidin Nr Tab) 200 mg Q6 PO 05/09/17 00:00 06/08/17 00:00 05/10/17 17:19 200 MG Ceftriaxone Sodium 1 gm/ Dextrose 50 ml @ 100 mls/hr Q24H IV 05/09/17 18:00 05/15/17 17:59 05/10/17 17:18 100 MLS/HR Enoxaparin Sodium (Lovenox Inj) 40 mg QAM SQ 05/09/17 09:00 06/08/17 08:59 05/10/17 08:38 40 MG Prednisone (PredniSONE TAB) 40 mg DAILY PO 05/09/17 09:00 06/08/17 08:59 05/10/17 08:39 40 MG Levalbuterol (Xopenex 0.63 Mg/ 3 Ml Neb) 0.63 mg Q6R INH 05/09/17 03:00 06/08/17 02:59 05/10/17 19:52 0.63 MG Glycopyrrolate (Robinul Tab) 1 mg TIDM PO 05/09/17 08:00 06/08/17 07:59 05/10/17 17:17 1 MG Pyridostigmine [place] (Mestinon Tab) 60 mg TIDM PO 05/09/17 08:00 06/08/17 07:59 05/10/17 17:17 60 MG Levofloxacin 750 mg/Prmx 150 ml @ 100 mls/hr Q24H IV 05/09/17 18:30 05/16/17 18:29 05/10/17 18:19 100 MLS/HR
[2017-05-11] VITALS (9 sets, daily range): BP systolic 133–153; BP diastolic 70–83; PULSE 63–76; TEMP 36.5–37.1; O2SAT 90–95
[2017-05-11] MEDS ORDERED: ZOLPIDEM TARTRATE 5 MG TAB PO PRN (01:30)
[2017-05-11] MEDS: SODIUM CHLORIDE 0.9% 1000ML 1,000 ML IV SCH ×2 (01:57→14:29)
[2017-05-11] MEDS: LEVALBUTEROL 0.63MG/3 ML NEB INH SCH ×4 (02:16→19:28)
[2017-05-11] MEDS: GUAIFENESIN 200 MG TAB PO SCH ×4 (06:09→23:41)
[2017-05-11 06:39] LABS: BUN/CREATININE RATIO 25.6 (10-20); CALCIUM 8.4 mg/dl (8.5-10.1); CREATININE 0.65 mg/dl (0.60-1.40); POTASSIUM 3.4 mmol/L (3.5-5.1)
[2017-05-11] MEDS: POTASSIUM CHLORIDE 10 MEQ TABCR PO SCH ×2 (07:48→17:15)
[2017-05-11] MEDS: ASPIRIN 325 MG ECTAB PO SCH (07:49)
[2017-05-11] MEDS: METOPROLOL TARTRATE 25 MG TAB PO SCH ×2 (07:49→20:59)
[2017-05-11] MEDS: ENOXAPARIN 40 MG/0.4 ML SYR SQ SCH (07:50)
[2017-05-11] MEDS: GLYCOPYRROLATE 1 MG TAB PO SCH ×3 (07:51→17:16)
[2017-05-11] MEDS: NIACIN 500 MG TAB IMMEDIATE RELEASE PO SCH (07:51)
[2017-05-11] MEDS: PYRIDOSTIGMINE BROMIDE 60 MG TAB PO SCH ×3 (07:52→17:16)
--- NOTE | 2017-05-11 10:44 | Pharmacy Progress Note ---
Automatic IV to PO Conversion Date of Service: May 11, 2017. [facility] has identified patient as an appropriate candidate for automatic intravenous to oral conversion. Eligible medication: LVQ IV every 24 hours. Day # 3 of IV therapy. Subjective The patient is a 87 year old male admitted on May 08, 2017 at 20:10 for Pneumonia. Objective Vital Signs: Vital Signs Past 12 Hours Date Time Temp Pulse Resp B/P (MAP) Pulse Ox O2 Delivery O2 Flow Rate FiO2 05/11/17 08:00 Room Air 05/11/17 07:35 36.6 76 18 153/81 (105) 90 05/11/17 07:08 68 16 93 Room Air 05/11/17 02:16 69 16 95 Room Air 05/11/17 00:00 Nasal Cannula 2.0 05/11/17 00:00 36.6 63 20 145/83 (103) 94 Room Air Height (Feet): 5 Height (Inches): 9.00 Weight (Kilograms): 78.300 Type of Diet: AHA Phase I Assessment & Plan The Infectious Disease Society and the [place] [employer] recommend conversion to oral therapy once a patient is determined to be clinically stable and are able to tolerate oral medications. Patient identified as appropriate candidate for IV to PO conversion of LVQ based on the following criteria: * Afebrile for greater than or equal to 12 hours * Receiving oral/enteral medications and/or tolerating oral/enteral diet for greater than 24 hours * Improvement in clinical condition evidenced by .. WBC count trending downward , resolution of signs/symptoms of illness * Hemodynamically stable Automatic conversion to: LVQ PO every 24 hours
[2017-05-11] MEDS: LEVOFLOXACIN 750 MG TAB PO SCH (11:30)
[2017-05-11] MEDS: CEFTRIAXONE SOD INJ 1 GM in DEXTROSE 5% ADD-VANTAGE 50ML 50 ML IV SCH (17:16)
--- NOTE | 2017-05-11 20:03 | Progress Note ---
Medicine Progress Note Date & Time of Visit: May 11, 2017 at 09:30 . Subjective No fever. Cough and dyspnea improved. No chest pain. No nausea or vomiting. No diarrhea. . Objective Last 8 Hrs Date Time Temp Pulse Resp B/P (MAP) Pulse Ox O2 Delivery O2 Flow Rate FiO2 05/11/17 19:28 63 16 93 Room Air 05/11/17 16:00 Room Air 05/11/17 15:21 36.5 68 18 133/70 (91) 95 05/11/17 14:22 72 16 91 Room Air Physical Exam: General- sitting in chair, no acute distress ENT- hard of hearing Neck- no JVD Lungs- few scattered rhonchi, diffuse mild wheezing (improved) Heart- RRR Abdomen- + BS, soft, nontender Extremities- no pretibial edema or calf tenderness Neuro- alert, oriented . Laboratory Results: Last 24 Hours Test 05/11/17 05:44 Sodium Level 140 mmol/L Potassium Level 3.4 mmol/L Chloride Level 105 mmol/L Carbon Dioxide Level 26 mmol/L Anion Gap 9.0 mmol/L Blood Urea Nitrogen 17 mg/dl Creatinine 0.65 mg/dl Est Creatinine Clear Calc Drug Dose 83.1 ml/min Estimated GFR () 102.8 Estimated GFR (Non- 88.7 BUN/Creatinine Ratio 25.6 Random Glucose 107 mg/dl Calcium Level 8.4 mg/dl Assessment & Plan PNEUMONIA (health-care associated) Presented to ED with cough and shortness of breath. White count elevated. Chest x-ray demonstrated bibasilar densities. Blood cultures obtained in ED. Sputum culture pending. Initially received his azithromycin and ceftriaxone. Antibiotic regimen changed to vancomycin and ceftriaxone in light of recent hospitalizations. Prednisone started for associated bronchospasm. Nasal screen for MRSA negative. Therefore, MRSA pneumonia unlikely. Discontinued vancomycin. Added levofloxacin for atypical coverage. Continue ceftriaxone. HYPOKALEMIA Serum potassium as low as 3.0. Potassium today = 3.4. Replace. Follow. HYPERTENSION Hemodynamically stable. Continue metoprolol. MYASTHENIA GRAVIS Hold mycophenolate mofetil in light of current infection. Continue pyridostigmine. BPH Continue tamsulosin. S/P ORIF RIGHT HIP FRACTURE Continue PT/OT as able. VTE PROPHYLAXIS SQ enoxaparin. Ambulate. DISPOSITION Has completed inpatient rehab at [facility]. Anticipated discharge to his daughter's home in [place] with home health / PT services. Returning to [place] after Thanksgiving. Local medical follow-up with [facility]. . Current Inpatient Medications: Current Inpatient Medications Medications (Trade) Dose Ordered Sig/Magi Route Start Time Stop Time Status Last Admin Dose Admin Acetaminophen (Tylenol Tab) 650 mg Q4H PRN PO 05/08/17 20:15 06/07/17 20:14 05/10/17 00:20 650 MG Sodium Chloride 1,000 ml @ 80 mls/hr [id number] IV 05/08/17 21:30 06/07/17 21:29 05/11/17 14:29 80 MLS/HR Aspirin (Ecotrin Tab) 325 mg DAILY PO 05/09/17 09:00 06/08/17 08:59 05/11/17 07:49 325 MG Finasteride (Proscar Tab) 5 mg QPM PO 05/08/17 21:00 06/07/17 20:59 05/10/17 20:28 5 MG Metoprolol Tartrate (Lopressor Tab) 25 mg BID PO 05/08/17 21:00 06/07/17 20:59 05/11/17 07:49 25 MG Potassium Chloride (Klor-Con M10) 10 meq BIDM PO 05/09/17 08:00 06/08/17 07:59 05/11/17 17:15 10 MEQ Tamsulosin HCl (Flomax Cap) 0.4 mg QPM PO 05/08/17 21:00 06/07/17 20:59 05/10/17 20:28 0.4 MG Niacin (Niacin Tab) 250 mg DAILY PO 05/09/17 09:00 06/08/17 08:59 05/11/17 07:51 250 MG Guaifenesin (Organidin Nr Tab) 200 mg Q6 PO 05/09/17 00:00 06/08/17 00:00 05/11/17 17:17 200 MG Ceftriaxone Sodium 1 gm/ Dextrose 50 ml @ 100 mls/hr Q24H IV 05/09/17 18:00 05/15/17 17:59 05/11/17 17:16 100 MLS/HR Enoxaparin Sodium (Lovenox Inj) 40 mg QAM SQ 05/09/17 09:00 06/08/17 08:59 05/11/17 07:50 40 MG Prednisone (PredniSONE TAB) 40 mg DAILY PO 05/09/17 09:00 06/08/17 08:59 05/11/17 07:49 40 MG Levalbuterol (Xopenex 0.63 Mg/ 3 Ml Neb) 0.63 mg Q6R INH 05/09/17 03:00 06/08/17 02:59 05/11/17 19:28 0.63 MG Glycopyrrolate (Robinul Tab) 1 mg TIDM PO 05/09/17 08:00 06/08/17 07:59 05/11/17 17:16 1 MG Pyridostigmine [place] (Mestinon Tab) 60 mg TIDM PO 05/09/17 08:00 06/08/17 07:59 05/11/17 17:16 60 MG Zolpidem Tartrate (Ambien Tab) 5 mg ONE PRN PO 05/11/17 01:30 Levofloxacin (Levaquin Tab) 750 mg DAILY@11 PO 05/11/17 11:00 05/16/17 10:59 05/11/17 11:30 750 MG
[2017-05-11] MEDS: FINASTERIDE 5 MG TAB PO SCH (20:59)
[2017-05-11] MEDS: TAMSULOSIN HCL 0.4 MG CAP PO SCH (21:00)
[2017-05-12] MEDS: LEVALBUTEROL 0.63MG/3 ML NEB INH SCH ×3 (01:56→14:13)
[2017-05-12] MEDS: SODIUM CHLORIDE 0.9% 1000ML 1,000 ML IV SCH ×2 (02:54→13:06)
[2017-05-12 03:27] LABS: MPA GLUCURONIDE 33.4 mcg/mL (35.0-100.0); MYCOPHENOLIC ACID 2.3 mcg/mL (1.0-3.5)
[2017-05-12] MEDS: GUAIFENESIN 200 MG TAB PO SCH ×2 (06:28→07:35)
[2017-05-12 06:53] LABS: BUN/CREATININE RATIO 21.7 (10-20); CALCIUM 8.1 mg/dl (8.5-10.1); CREATININE 0.62 mg/dl (0.60-1.40); POTASSIUM 3.6 mmol/L (3.5-5.1)
[2017-05-12 06:58] VITALS: PULSE 66; O2SAT 94
[2017-05-12 07:18] VITALS: BP 169/78; PULSE 60; TEMP 36.6; O2SAT 99
[2017-05-12] MEDS: NIACIN 500 MG TAB IMMEDIATE RELEASE PO SCH (07:35)
[2017-05-12] MEDS: GLYCOPYRROLATE 1 MG TAB PO SCH ×2 (07:36→11:47)
[2017-05-12] MEDS: PYRIDOSTIGMINE BROMIDE 60 MG TAB PO SCH ×2 (07:36→11:47)
[2017-05-12] MEDS: POTASSIUM CHLORIDE 10 MEQ TABCR PO SCH (07:36)
[2017-05-12] MEDS: ASPIRIN 325 MG ECTAB PO SCH (07:36)
[2017-05-12] MEDS: METOPROLOL TARTRATE 25 MG TAB PO SCH (07:36)
[2017-05-12] MEDS: ENOXAPARIN 40 MG/0.4 ML SYR SQ SCH (07:37)
[2017-05-12] MEDS: LEVOFLOXACIN 750 MG TAB PO SCH (10:41)
[2017-05-12 14:13] VITALS: PULSE 70; O2SAT 96
[2017-05-12 15:11] VITALS: BP 153/64; PULSE 79; TEMP 36.4; O2SAT 90
--- NOTE | 2017-05-12 16:29 | Progress Note ---
Medicine Progress Note Date & Time of Visit: May 12, 2017 at 16:28. Objective Last 8 Hrs Date Time Temp Pulse Resp B/P (MAP) Pulse Ox O2 Delivery O2 Flow Rate FiO2 05/12/17 15:11 36.4 79 20 153/64 (93) 90 05/12/17 14:13 70 16 96 Room Air Physical Exam: General- sitting in chair, no acute distress ENT- hard of hearing Neck- no JVD Lungs- few scattered rhonchi, diffuse mild wheezing (improved) Heart- RRR Abdomen- + BS, soft, nontender Extremities- no pretibial edema or calf tenderness Neuro- alert, oriented . Laboratory Results: Last 24 Hours Test 05/12/17 05:59 Sodium Level 141 mmol/L Potassium Level 3.6 mmol/L Chloride Level 107 mmol/L Carbon Dioxide Level 27 mmol/L Anion Gap 7.0 mmol/L Blood Urea Nitrogen 13 mg/dl Creatinine 0.62 mg/dl Est Creatinine Clear Calc Drug Dose 87.2 ml/min Estimated GFR () 104.8 Estimated GFR (Non- 90.5 BUN/Creatinine Ratio 21.7 Random Glucose 111 mg/dl Calcium Level 8.1 mg/dl Assessment & Plan PNEUMONIA (health-care associated) Presented to ED with cough and shortness of breath. White count elevated. Chest x-ray demonstrated bibasilar densities. Blood cultures obtained in ED. Sputum culture pending. Initially received his azithromycin and ceftriaxone. Antibiotic regimen changed to vancomycin and ceftriaxone in light of recent hospitalizations. Prednisone started for associated bronchospasm. Nasal screen for MRSA negative. Therefore, MRSA pneumonia unlikely. Discontinued vancomycin. Added levofloxacin for atypical coverage. Continue ceftriaxone. HYPOKALEMIA Serum potassium as low as 3.0. Potassium today = 3.4. Replace. Follow. HYPERTENSION Hemodynamically stable. Continue metoprolol. MYASTHENIA GRAVIS Hold mycophenolate mofetil in light of current infection. Continue pyridostigmine. BPH Continue tamsulosin. S/P ORIF RIGHT HIP FRACTURE Continue PT/OT as able. VTE PROPHYLAXIS SQ enoxaparin. Ambulate. DISPOSITION Has completed inpatient rehab at [facility]. Anticipated discharge to his daughter's home in [place] with home health / PT services. Returning to [place] after Thanksgiving. Local medical follow-up with [facility]. . Current Inpatient Medications: Current Inpatient Medications Medications (Trade) Dose Ordered Sig/Magi Route Start Time Stop Time Status Last Admin Dose Admin Acetaminophen (Tylenol Tab) 650 mg Q4H PRN PO 05/08/17 20:15 06/07/17 20:14 05/10/17 00:20 650 MG Sodium Chloride 1,000 ml @ 80 mls/hr [id number] IV 05/08/17 21:30 06/07/17 21:29 05/12/17 13:06 80 MLS/HR Aspirin (Ecotrin Tab) 325 mg DAILY PO 05/09/17 09:00 06/08/17 08:59 05/12/17 07:36 325 MG Finasteride (Proscar Tab) 5 mg QPM PO 05/08/17 21:00 06/07/17 20:59 05/11/17 20:59 5 MG Metoprolol Tartrate (Lopressor Tab) 25 mg BID PO 05/08/17 21:00 06/07/17 20:59 05/12/17 07:36 25 MG Potassium Chloride (Klor-Con M10) 10 meq BIDM PO 05/09/17 08:00 06/08/17 07:59 05/12/17 07:36 10 MEQ Tamsulosin HCl (Flomax Cap) 0.4 mg QPM PO 05/08/17 21:00 06/07/17 20:59 05/11/17 21:00 0.4 MG Niacin (Niacin Tab) 250 mg DAILY PO 05/09/17 09:00 06/08/17 08:59 05/12/17 07:35 250 MG Guaifenesin (Organidin Nr Tab) 200 mg Q6 PO 05/09/17 00:00 06/08/17 00:00 05/12/17 07:35 200 MG Ceftriaxone Sodium 1 gm/ Dextrose 50 ml @ 100 mls/hr Q24H IV 05/09/17 18:00 05/15/17 17:59 05/11/17 17:16 100 MLS/HR Enoxaparin Sodium (Lovenox Inj) 40 mg QAM SQ 05/09/17 09:00 06/08/17 08:59 05/12/17 07:37 40 MG Prednisone (PredniSONE TAB) 40 mg DAILY PO 05/09/17 09:00 06/08/17 08:59 05/12/17 07:36 40 MG Levalbuterol (Xopenex 0.63 Mg/ 3 Ml Neb) 0.63 mg Q6R INH 05/09/17 03:00 06/08/17 02:59 05/12/17 14:13 0.63 MG Glycopyrrolate (Robinul Tab) 1 mg TIDM PO 05/09/17 08:00 06/08/17 07:59 05/12/17 11:47 1 MG Pyridostigmine [place] (Mestinon Tab) 60 mg TIDM PO 05/09/17 08:00 06/08/17 07:59 05/12/17 11:47 60 MG Zolpidem Tartrate (Ambien Tab) 5 mg ONE PRN PO 05/11/17 01:30 Levofloxacin (Levaquin Tab) 750 mg DAILY@11 PO 05/11/17 11:00 05/16/17 10:59 05/12/17 10:41 750 MG
[2017-05-12] MEDS ORDERED: AMOX875T PO (16:32)
[2017-05-12] MEDS ORDERED: LVQ750 PO (16:32)
[2017-05-12] MEDS ORDERED: PRED10TA PO (16:32)
--- NOTE | 2017-05-12 16:40 | Discharge Instructions ---
Discharge Instructions Date of Service May 12, 2017. Admission Reason for Admission: Pneumonia Discharge Discharge Diagnosis / Problem: pneumonia Discharge Goals Goal(s): Improve disease control Activity Recommendations Activity Limitations: resume your previous activity . Instructions / Follow-Up Instructions / Follow-Up APPOINTMENTS: [facility] Dr. Colon 05/17/17 at 12:45 PM [facility] [id number] Dr[address] Zuniga 05/17/17 at 2:30 PM OTHER INSTRUCTIONS: You had pneumonia, possibly due to aspiration related to your myasthenia gravis. Take levofloxacin (Levaquin) 750 mg daily for 7 days. Take amoxicillin / clavulanic acid (Augmentin) 875 mg twice a day with food. Take prednisone 40 mg daily for 4 days - take with food, no need to taper. Be careful not to choke when eating and drinking. Follow previous recommendations from Speech Therapy. Consider asking your primary care provider for new referral to Speech Therapy in [place]. Hold Cellcept for 2 weeks unless your neurologist instructs otherwise. Seek medical attention if you have: * temperature above 101 * chest pain or trouble breathing * abdominal pain, nausea, vomiting * diarrhea, dark stools or bloody stools * any unanswered questions or concerns Call 911 if symptoms are severe. Call if you have any questions or problems. My cell # is [phone]. You can also reach a [facility] hospitalist on duty at [facility] 24 hours a day by calling [phone]. Please take good care of yourself. Emmanuel Galvez . Current Hospital Diet Patient's current hospital diet: AHA Diet (Heart Healthy) Discharge Diet Recommended Diet: AHA Diet (Heart Healthy) Diet Texture: Dental Soft (bite-sized) Pending Studies Studies pending at discharge: no Medical Emergencies . Who to Call and When: Medical Emergencies: If at any time you feel your situation is an emergency, please call 911 immediately. . Non-Emergent Contact Non-Emergency issues call your: Primary Care Provider, Hospital Doctor . . "Provider Documentation" section prepared by Emmanuel Galvez. . VTE Core Measure Inpt VTE Proph given/why not?: Enoxaparin (Lovenox)SQ
[2017-05-12 16:50] VITALS: BP 153/64; PULSE 79; TEMP 36.4; O2SAT 90
== END 2017-05-12 17:15 | disposition home health service (06) | DRG 871 ==
LOC: C.EDA 17:10 → C.MED 20:10 → ENRESERV 20:28
PROVIDERS: ADMIT Internal Medicine; ATTEND Hospitalist
DX: A41.9 Sepsis, unspecified organism (principal); J18.9 Pneumonia, unspecified organism; N40.0 Benign prostatic hyperplasia without lower urinary tract symptoms; I10 Essential (primary) hypertension; G70.00 Myasthenia gravis without (acute) exacerbation; E87.6 Hypokalemia; Z96.641 Presence of right artificial hip joint; Z79.82 Long term (current) use of aspirin

== ENCOUNTER → 2017-05-17 | Outpatient (CLI) | payer OTHER ==
[~2017-05-17] MED LIST: AMOX875T PO; ASPI325T39 PO; BENZ100C84 PO; CALC500T83 PO; CHOL20007 PO; FINA5TAB4 PO; GING500C2 PO; LVQ750 PO; METO25TA56 PO; MYCO500T4 PO; NIAC250T8 PO; OMEG10002 PO; POTA10CA28 PO; PRED10TA PO; PYRI60TA2 PO; RBN1 PO; TAMS0.4C38 PO; UBIQ1CAP8 PO
== END | disposition home or self-care (01) ==
LOC: C.RDSM 13:00
PROVIDERS: ATTEND Physical Medicine & Rehabilitation Sports Medicine
DX: Z96.641 Presence of right artificial hip joint (principal)

== ENCOUNTER 2021-03-16 17:00 | Inpatient (IN) ==
[2021-03-16 18:07] LABS: Hemoglobin 12.3 g/dL (14.0-18.0); Mean Corpuscular Hemoglobin 31.2 pg (25-34); Mean Corpuscular Hgb Conc 33.2 g/dL (32-36); Mean Corpuscular Volume 93.9 fL (80-100); Platelet Count 436 K/uL (130-400); RDW Coefficient of Variation 13.5 % (11.5-14.5); RDW Standard Deviation 46.8 fL (36.4-46.3); Red Blood Count 3.94 M/uL (4.7-6.1); White Blood Count 11.54 K/uL (4.8-10.8)
--- NOTE | 2021-03-16 18:11 | XRay Report ---
XR chest 1V portable CLINICAL HISTORY: weakness COMPARISON STUDY: May 08, 2017 FINDINGS: No pneumothorax. No pleural effusion. Hazy and reticular opacities are seen in bilateral lower lungs, might represent scattered atelectasis , chronic fibrosis or superimposed infiltrative lesions. Cardiomediastinal silhouette is within normal limits in size. No significant pulmonary vascular congestion.. Aorta is tortuous and calcified. Osseous structures: Degenerative changes of the spine. IMPRESSION: 1. Possible infiltrative lesions in bilateral lower lungs ACT 112: Negative or not required by law. The above report was generated using voice recognition software. It may contain grammatical, syntax o r spelling errors. Electronically signed by: Madelaine Hussein DO 03/16/2021 6:10 PM
[2021-03-16 18:14] LABS: Albumin Level 2.8 gm/dl (3.4-5.0); Blood Urea Nitrogen 21 mg/dl (7-18); Calcium 8.7 mg/dl (8.5-10.1); Carbon Dioxide 26 mmol/L (21-32); Chloride 101 mmol/L (98-107); Est GFR (Non-African American) 86.3 ml/min; Glucose 134 mg/dl (70-99); Magnesium 1.9 mg/dl (1.8-2.4); Potassium 3.7 mmol/L (3.5-5.1); Sodium 133 mmol/L (136-145)
--- NOTE | 2021-03-16 18:14 | Emergency Department Note ---
Impression & Plan Pneumonia, Myasthenia gravis, Weakness ED Provider Note NAME: NELIA COLEMAN AGE: 89 SEX: M : 1930 ARRIVES VIA: Ambulance INFORMANT: Patient, ED PROVIDER(S): Joseph Hill DO CHIEF COMPLAINT: Weakness HPI: The patient is an 89-year-old male who presented to the emergency department for evaluation of generalized weakness. The patient arrived via ambulance. The patient is unable to provide complete history. The patient states that he noticed today he was having significant difficulty ambulating when he tried to get up. He also noticed nausea. He denies having any chest pain. He denies having any abdominal pain. He denies having any headache. He states his weakness is generalized. He was sent to the emergency department by family member. The patient has an immobilizer to his left leg for recent lower extremity fracture. He denies having any swelling or pain in that leg. He denies having any orthopnea. The patient states he has a nonproductive cough. ROS: See above HPI for pertinent positives & negatives. A total of 10 systems reviewed and were otherwise negative. PAST MEDICAL HISTORY: See Below PAST SURGICAL HISTORY: See Below FAMILY HISTORY: See Below SOCIAL HISTORY: See Below HOME MEDICATIONS: See Below ALLERGIES: See Below VITALS: See Below PHYSICAL EXAMINATION: GENERAL: The patient is sleeping when I enter the room but awakens to verbal commands. He does not appear to be anxious. There is no odor of urine in the room. EYES: The conjunctivae are clear. The pupils are round and reactive. EARS, NOSE, MOUTH AND THROAT: The nose is without any evidence of any deformity. Mucous membranes are dry. NECK: The neck is nontender and supple. RESPIRATORY: Normal respiratory effort is noted there is no evidence of wheezing rhonchi or rales CARDIOVASCULAR: Regular rate and rhythm noted there no murmurs rubs or gallops normal S1 normal S2. GASTROINTESTINAL: The abdomen is soft. Abdomen is nontender. MUSCULOSKELETAL/EXTREMITIES: There is a knee immobilizer to the left leg. SKIN: Trace pedal edema was noted bilaterally. NEUROLOGIC: Patient is awake and oriented to person place and situation. Strength was symmetric but diminished. There is no facial droop. MEDICAL DECISION MAKING: The patient is an 89-year-old male who has a history of myasthenia gravis who presented to the emergency department for an evaluation of difficulty breathing. The patient presented with his family member. The patient recently was discharged from inpatient rehab because of a tib-fib fracture. The patient has not been doing well at home. He has been having worsening shortness of breath. He has been increasingly weak according to his family member. I discussed the patient's laboratory and radiographic studies with the family member as well as the patient. He was given an IV antibiotic for presumed pneumonia noted on chest x-ray. Given his past medical history and findings today I do feel the patient may require inpatient management. For this reason I discussed his case with the on-call [facility] hospitalist. They have agreed to evaluate the patient in the emergency department for further management and disposition. Triage Nursing notes reviewed. Prior medical records reviewed Vital Signs: reviewed and remarkable for no significant abnormalities Differential diagnosis: Infection, dehydration, metabolic abnormality, hypo/hyperglycemia, electrolyte disturbance, anemia, hypoxia, cardiac sources, intracerebral event, toxicologic, neurologic, as well as other pathologies. ER treatment provided: See below Diagnostics interpreted by me: ECG: EKG was obtained in the emergency department my interpretation is sinus rhythm at 73 bpm. PACs were noted. LVH was noted by voltage criteria. Incomplete right bundle branch block pattern was noted. This was compared to a tracing from May 082016. No significant changes were noted. Cardiac Monitoring: An order was placed for continuous cardiac monitoring. The monitor shows a rate of 77 bpm with sinus rhythm. Laboratory studies: As stated above and show below. Imaging studies: See below Consultation(s): 1950: I discussed this case with Dr. Encarnacion who will evaluate the patient in the emergency department. Past Med/Surg History Medical History BPH (benign prostatic hyperplasia) Hypertension Left tibial fracture Myasthenia gravis Social History Smoking Status: Former smoker Smoking End Date: 1971; Second Hand Exposure: No; Do You Dip or Chew Tobacco: No; Tobacco Cessation Education Requested by Patient: No Hx Alcohol Use: Yes Alcohol type: beer, wine and hard liquor Hx Substance Use: No Preferred Language: Thai Communication Ability: Effective Parking Cashier Required: No Beliefs That Will Affect Care: None Current Living Situation: Spouse Current Living Situation Comment: Lives with Other Information That Helps Us Care for You: No Feels Safe at Home: Yes Safety Concerns: Feels Safe At This Time Assistive Devices: Glasses Allergies Allergies Allergy/AdvReac Type Severity Reaction Status Date / Time No Known Allergies Allergy Unverified 03/16/21 19:54 Home Meds Home Medications Medication Instructions Recorded Confirmed aspirin-acetaminophen (buffered) 0.5 tab PO QPM 03/16/21 03/16/21 250 mg-250 mg tablet calcium 250 mg tablet 0 mg PO BID 03/16/21 03/16/21 cholecalciferol (vitamin D3) 50 50 mcg PO DAILY 03/16/21 03/16/21 mcg (2,000 unit) tablet (Vitamin D3) d-mannose 500 mg capsule 0 mg PO QAM 03/16/21 03/16/21 enoxaparin 30 mg/0.3 mL 30 mg SUBCUT QPM 03/16/21 03/16/21 subcutaneous syringe finasteride 5 mg tablet 5 mg PO QPM 03/16/21 03/16/21 lisinopril 20 mg tablet 10 mg PO QAM 03/16/21 03/16/21 lisinopril 20 mg tablet 20 mg PO QPM 03/16/21 03/16/21 metoprolol succinate 25 mg 12.5 mg PO BID 03/16/21 03/16/21 tablet,extended release 24 hr mirabegron 25 mg tablet,extended 25 mg PO QAM 03/16/21 03/16/21 release 24 hr (Myrbetriq) mycophenolate mofetil 500 mg 1,000 mg PO BID 03/16/21 03/16/21 tablet (CellCept) omega-3 fatty acids 1,000 mg PO DAILY 03/16/21 03/16/21 pyridostigmine bromide 60 mg tablet 60 mg PO BID 03/16/21 03/16/21 turmeric 400 mg capsule 500 mg PO DAILY 03/16/21 03/16/21 Results & Data (ED) Vital Signs Vital Signs - 24 hr 03/16/21 17:16 03/16/21 17:31 03/16/21 21:31 Temperature 37 C 37 C Temperature Source Oral Oral Pulse Rate 72 75 Pulse Rate [Apical] 70 74 Pulse Rhythm Regular Respiratory Rate 23 22 18 Respiratory Depth Normal Normal Blood Pressure 156/84 H Blood Pressure [Left Arm] 159/88 H 129/75 Blood Pressure Mean 108 Blood Pressure Mean [Left Arm] 111 93 Blood Pressure Position [Left Arm] Lying Pulse Oximetry 92 92 94 Oxygen Delivery Method Room Air Room Air Room Air Sepsis Recent Fever Within 48 Hours No Sepsis New/Unexplained Change in Mental Status No Sepsis Action Taken by Nursing No Action Required Home Medications Current Medication List: was personally reviewed by me Laboratory Data Attestation: I reviewed the patient's lab results. Result diagrams: 03/17/21 05:29 03/17/21 05:29 Lab Results 03/16/21 03/16/21 03/16/21 Range/Units 18:01 18:01 18:15 WBC 11.54 H (4.8-10.8) K/uL RBC 3.94 L (4.7-6.1) M/uL Hgb 12.3 L (14.0-18.0) g/dL Hct 37.0 L (42-52) % MCV 93.9 (80-100) fL MCH 31.2 (25-34) pg MCHC 33.2 (32-36) g/dL RDW Std Deviation 46.8 H (36.4-46.3) fL RDW Coeff of Christoph 13.5 (11.5-14.5) % Plt Count 436 H (130-400) K/uL MPV 10.0 (7.4-10.4) fL Immature Gran % (Auto) 0.3 % Neut % (Auto) 74.1 % Lymph % (Auto) 13.6 % Whites[place] % (Auto) 8.4 % Eos % (Auto) 3.4 % Baso % (Auto) 0.2 % Neut # (Auto) 8.55 H (1.4-6.5) K/uL Lymph # (Auto) 1.57 (1.2-3.4) K/uL [place] # (Auto) 0.97 H (0.11-0.59) K/uL Eos # (Auto) 0.39 (0-0.5) K/uL Baso # (Auto) 0.02 (0-0.2) K/uL Immature Gran # (Auto) 0.04 H (0.00-0.02) K/uL RBC Morphology Unremarkable PT (9.0-12.0) Seconds INR (0.9-1.1) APTT (21.0-31.0) Seconds PTT Ratio VBG pH (7.36-7.41) VBG pCO2 (38-50) mmHg VBG pO2 mmHg VBG HCO3 mmol/L VBG O2 Saturation % VBG Base Excess mEq/L Barometric Pressure mm/Hg Sodium (136-145) mmol/L Potassium (3.5-5.1) mmol/L Chloride (98-107) mmol/L Carbon Dioxide (21-32) mmol/L Anion Gap (3-11) BUN (7-18) mg/dl Creatinine (0.6-1.4) mg/dl Est GFR ( Amer) ml/min Est GFR (Non-Af Amer) ml/min BUN/Creatinine Ratio (10-20) Glucose (70-99) mg/dl Calcium (8.5-10.1) mg/dl Magnesium (1.8-2.4) mg/dl Total Bilirubin (0.2-1) mg/dl AST (15-37) U/L ALT (12-78) U/L Alkaline Phosphatase (45-117) U/L Total Creatine Kinase (39-308) U/L Troponin I (0-0.045) ng/ml Total Protein (6.4-8.2) gm/dl Albumin (3.4-5.0) gm/dl Globulin (2.5-4.0) gm/dl Albumin/Globulin Ratio (0.9-2) TSH (0.300-4.500) uIu/ml COVID-19 Eval Order Covid19 at [facility] SARS-CoV-2 (PCR) NEGATIVE (Negative) 03/16/21 03/16/21 03/16/21 Range/Units 18:15 18:15 18:15 WBC (4.8-10.8) K/uL RBC (4.7-6.1) M/uL Hgb (14.0-18.0) g/dL Hct (42-52) % MCV (80-100) fL MCH (25-34) pg MCHC (32-36) g/dL RDW Std Deviation (36.4-46.3) fL RDW Coeff of Christoph (11.5-14.5) % Plt Count (130-400) K/uL MPV (7.4-10.4) fL Immature Gran % (Auto) % Neut % (Auto) % Lymph % (Auto) % [place] % (Auto) % Eos % (Auto) % Baso % (Auto) % Neut # (Auto) (1.4-6.5) K/uL Lymph # (Auto) (1.2-3.4) K/uL [place] # (Auto) (0.11-0.59) K/uL Eos # (Auto) (0-0.5) K/uL Baso # (Auto) (0-0.2) K/uL Immature Gran # (Auto) (0.00-0.02) K/uL RBC Morphology PT 10.8 (9.0-12.0) Seconds INR 1.1 (0.9-1.1) APTT 27.9 (21.0-31.0) Seconds PTT Ratio 1.1 VBG pH 7.47 H (7.36-7.41) VBG pCO2 35 L (38-50) mmHg VBG pO2 41 mmHg VBG HCO3 25 mmol/L VBG O2 Saturation 79.7 % VBG Base Excess 1.9 mEq/L Barometric Pressure 736.5 mm/Hg Sodium 133 L (136-145) mmol/L Potassium 3.7 (3.5-5.1) mmol/L Chloride 101 (98-107) mmol/L Carbon Dioxide 26 (21-32) mmol/L Anion Gap 6.0 (3-11) BUN 21 H (7-18) mg/dl Creatinine 0.65 (0.6-1.4) mg/dl Est GFR ( Amer) 100.0 ml/min Est GFR (Non-Af Amer) 86.3 ml/min BUN/Creatinine Ratio 33.0 H (10-20) Glucose 134 H (70-99) mg/dl Calcium 8.7 (8.5-10.1) mg/dl Magnesium 1.9 (1.8-2.4) mg/dl Total Bilirubin 0.5 (0.2-1) mg/dl AST 14 L (15-37) U/L ALT 16 (12-78) U/L Alkaline Phosphatase 155 H (45-117) U/L Total Creatine Kinase 22 L (39-308) U/L Troponin I < 0.015 (0-0.045) ng/ml Total Protein 6.5 (6.4-8.2) gm/dl Albumin 2.8 L (3.4-5.0) gm/dl Globulin 3.7 (2.5-4.0) gm/dl Albumin/Globulin Ratio 0.8 L (0.9-2) TSH 0.941 (0.300-4.500) uIu/ml COVID-19 Eval Order SARS-CoV-2 (PCR) (Negative) Administered Medications Calcium Carbonate (Calcium Carbonate 1250mg Tab) 1,250 mg PO BID [facility] Stop: 04/16/21 08:59 Last Admin: 03/17/21 08:19 Dose: 1,250 mg Documented by: [id number] Piperacillin Sod/Tazobactam (Sod 3.375 gm/ Dextrose) 115 mls @ 28.75 mls/hr IV Q8H [facility]; Protocol Stop: 03/24/21 05:59 Last Admin: 03/17/21 13:53 Dose: 28.8 mls/hr Documented by: [id number] Infusion: 03/17/21 10:15 Dose: 0 mls/hr Documented by: [id number] Admin: 03/17/21 06:11 Dose: 28.8 mls/hr Documented by: [id number] Lisinopril (Lisinopril 10 Mg Tab) 10 mg PO QAM [facility] Stop: 04/16/21 08:59 Last Admin: 03/17/21 08:19 Dose: 10 mg Documented by: [id number] Metoprolol Succinate (Metoprolol Succ 25mg Ext Rel Tab) 12.5 mg PO BID [facility] Stop: 04/16/21 08:59 Last Admin: 03/17/21 08:20 Dose: 12.5 mg Documented by: [id number] Mirabegron (Mirabegron Er 25 Mg Tab) 25 mg PO QAM [facility] Stop: 04/16/21 08:59 Last Admin: 03/17/21 08:20 Dose: 25 mg Documented by: [id number] Mycophenolate Mofetil (Mycophenolate Mofetil 250 Mg Cap) 1,000 mg PO BID@1000,2200 [facility] Stop: 04/16/21 09:59 Last Admin: 03/17/21 10:16 Dose: 1,000 mg Documented by: [id number] Pyridostigmine [place] (Pyridostigmine [place] 60 Mg Tab) 60 mg PO BID [facility] Stop: 10/20/21 08:59 Last Admin: 03/17/21 08:20 Dose: 60 mg Documented by: [id number] Vitamin D (Cholecalciferol 1,000 Units 25 Mcg Tab) 2,000 units PO DAILY [facility] Stop: 04/16/21 08:59 Last Admin: 03/17/21 08:19 Dose: 2,000 units Documented by: [id number] Discontinued Medications Ceftriaxone Sodium (Rocephin) 1,000 mg in 50 mls @ 100 mls/hr IV NOW STA Stop: 03/16/21 20:10 Last Infusion: 03/16/21 20:42 Dose: 0 mls/hr Documented by: [id number] Admin: 03/16/21 20:11 Dose: 100 mls/hr Documented by: [id number] Sodium Chloride (Nss 1000ml) 1,000 mls @ 80 mls/hr IV .[id number] [facility] Stop: 03/17/21 11:44 Last Infusion: 03/17/21 12:39 Dose: 0 mls/hr Documented by: [id number] Admin: 03/16/21 23:56 Dose: 80 mls/hr Documented by: [id number] Doxycycline Hyclate 100 mg/ (Dextrose) 110 mls @ 50 mls/hr IV Q12H [facility] Stop: 03/24/21 00:00 Last Infusion: 03/17/21 02:43 Dose: 0 mls/hr Documented by: [id number] Admin: 03/16/21 23:56 Dose: 50 mls/hr Documented by: [id number] Piperacillin Sod/Tazobactam (Sod 3.375 gm/ Dextrose) 115 mls @ 230 mls/hr IV NOW ONE; Protocol Stop: 03/17/21 00:29 Last Infusion: 03/17/21 01:19 Dose: 0 mls/hr Documented by: [id number] Admin: 03/16/21 23:56 Dose: 230 mls/hr Documented by: [id number] Miscellaneous (Patient's Height And/Or Weight Needed) 1 ea N/A Q15M [facility] Stop: 04/16/21 00:14 Last Admin: 03/17/21 02:45 Dose: Not Given Documented by: [id number] Admin: 03/17/21 02:45 Dose: Not Given Documented by: [id number] Admin: 03/17/21 02:44 Dose: Not Given Documented by: [id number] Admin: 03/17/21 01:20 Dose: Not Given Documented by: [id number] Imaging Data Radiologist's Impression: Chest X-Ray 03/16/21 17:54 XR chest 1V portable CLINICAL HISTORY: weakness COMPARISON STUDY: May 08, 2017 FINDINGS: No pneumothorax. No pleural effusion. Hazy and reticular opacities are seen in bilateral lower lungs, might represent scattered atelectasis, chronic fibrosis or superimposed infiltrative lesions. Cardiomediastinal silhouette is within normal limits in size. No significant pulmonary vascular congestion.. Aorta is tortuous and calcified. Osseous structures: Degenerative changes of the spine. IMPRESSION: 1. Possible infiltrative lesions in bilateral lower lungs ACT 112: Negative or not required by law. The above report was generated using voice recognition software. It may contain grammatical, syntax or spelling errors. Electronically signed by: Madelaine Hussein DO 03/16/2021 6:[address] 03/16/21 17:54 CT head/brain wo con CLINICAL HISTORY: weak COMPARISON STUDY: No previous studies for comparison. TECHNIQUE: Axial CT of the brain is performed from the vertex to the skull base. IV contrast was not administered for this examination. A dose lowering technique was utilized adhering to the principles of ALARA. CT DOSE: 614.27 mGy.cm FINDINGS: No intra or extra-axial mass lesions are visualized. There is no CT evidence of acute cortical infarction. There is no evidence of midline shift. There is no acute hemorrhage. No acute depressed calvarial fractures are visualized. There are patchy white matter hypodensities likely on a small vessel basis. There is no evidence of pathologic ventricular dilatation. There is no evidence of acute sinusitis IMPRESSION: No acute intracranial hemorrhage, no midline shift or space occupying lesions. ACT 112: Negative or not required by law. The above report was generated using voice recognition software. It may contain grammatical, syntax or spelling errors. Electronically signed by: Madelaine Hussein DO 03/16/2021 7:01 PM Discharge Plan Visit Data Chief Complaint: Weakness Stated Complaint: WEAKNESS, AMS ED Provider: Joseph Hill Discharge Problem: Pneumonia, Myasthenia gravis, Weakness Patient Disposition: Admitted As Inpatient Condition: Good Discharge Instructions Interventions: ED Discharge Assessment Last Done: 03/16/21 22:24 Discharge Problem: Pneumonia Qualifiers: Pneumonia type: due to other aerobic Gram-negative bacteria Laterality: bilateral Lung location: lower lobe of lung Qualified Code(s): J15.6 - Pneumonia due to other Gram-negative bacteria
[2021-03-16 18:16] LABS: INR 1.1 (0.9-1.1); Partial Thromboplastin Ratio 1.1; Partial Thromboplastin Time 27.9 Seconds (21.0-31.0); Prothrombin Time 10.8 Seconds (9.0-12.0)
[2021-03-16 18:25] LABS: Alanine Aminotransferase 16 U/L (12-78); Albumin Globulin Ratio 0.8 (0.9-2); Alkaline Phosphatase 155 U/L (45-117); Aspartate Aminotransferase 14 U/L (15-37); Bilirubin,Total 0.5 mg/dl (0.2-1); Creatine Kinase 22 U/L (39-308); Globulin 3.7 gm/dl (2.5-4.0); Thyroid Stimulating Hormone 0.941 uIu/ml (0.300-4.500); Total Protein 6.5 gm/dl (6.4-8.2); Troponin I < 0.015 ng/ml (0-0.045)
[2021-03-16 18:29] LABS: Basophils # (auto) 0.02 K/uL (0-0.2); Basophils % (auto) 0.2 %; Eosinophils # (auto) 0.39 K/uL (0-0.5); Eosinophils % (auto) 3.4 %; Immature Granulocytes # (auto) 0.04 K/uL (0.00-0.02); Immature Granulocytes % (auto) 0.3 %; Lymphocytes # (auto) 1.57 K/uL (1.2-3.4); Lymphocytes % (auto) 13.6 %; Monocytes # (auto) 0.97 K/uL (0.11-0.59); Monocytes % (auto) 8.4 %; Neutrophils # (auto) 8.55 K/uL (1.4-6.5); Neutrophils % (auto) 74.1 %; RBC Morphology Unremarkable
[2021-03-16 18:45] LABS: Base Excess VBG 1.9 mEq/L; Oxygen Saturation VBG 79.7 %; pH VBG 7.47 (7.36-7.41)
--- NOTE | 2021-03-16 19:02 | CT Scan Report ---
CT head/brain wo con CLINICAL HISTORY: weak COMPARISON STUDY: No previous studies for comparison. TECHNIQUE: Axial CT of the brain is performed from the vertex to the skull base. IV contrast was not administered for this examination. A dose lowering technique was utilized adhering to the principles of ALARA. CT DOSE: 614.27 mGy.cm FINDINGS: No intra or extra-axial mass lesions are visualized. There is no CT evidence of acute cortical infarc tion. There is no evidence of midline shift. There is no acute hemorrhage. No acute depressed calvar ial fractures are visualized. There are patchy white matter hypodensities likely on a small vessel basis. There is no evidence of pathologic ventricular dilatation. There is no evidence of acute sinusitis IMPRESSION: No acute intracranial hemorrhage, no midline shift or space occupying lesions. ACT 112: Negative or not required by law. The above report was generated using voice recognition software. It may contain grammatical, syntax o r spelling errors. Electronically signed by: Madelaine Hussein DO 03/16/2021 7:01 PM
[2021-03-16 19:15] LABS: Appearance Urine Cloudy (Clear); Bacteria Urine Automated Negative (Negative); Bilirubin Urine Negative (Negative); Blood Urine 1+ (Negative); Color Urine Dark Yellow; Epithelial Cell Urine Auto 20-30 /lpf (0-5); Glucose Urine UA Negative (Negative); Ketones Urine 1+ (Negative); Leukocyte Esterase Urine Negative (Negative); Nitrite Urine Negative (Negative); Protein Urine Trace (Negative); Specific Gravity Urine 1.028 (1.000-1.030); Urobilinogen Urine Negative (Negative)
[2021-03-16] MEDS ORDERED: cefTRIAXone SODIUM 1,000 MG/50 ML BAG IV STA (19:41)
--- NOTE | 2021-03-16 22:41 | History and Physical Report ---
DATE OF ADMISSION: 03/16/2021 CHIEF COMPLAINT: Weakness. HISTORY OF PRESENT ILLNESS: This is an 89-year-old male with past medical history significant for myasthenia gravis, BPH, hypertension, urinary incontinence, who was brought in from home because of weakness. The patient is not [facility]. As per the daughter, he has a left tibial fracture. On 02/18, he was admitted to the hospital [place] of [place] and was operated on 02/19, and on 02/24, he was discharged to [facility] because his daughter lives in this area and on 03/13, he was discharged home. Since coming home, the patient is very weak and tired, not getting up, sleeping all the time and because he is very drowsy and sleepy, he is not taking his medications, which is making his myasthenia to get worse and he seemed to be somewhat choking on the food, coughing, bringing up a lot of phlegm. No fevers at home. The patient is currently very hard of hearing, but denies any pain anywhere. Denies any nausea, denies any abdominal discomfort. He had normal bowel and bladder movements. Otherwise, appetite is okay. Denies any chest pain or shortness of breath. Has some stuffy nose. ALLERGIES: No known drug allergies. PAST MEDICAL HISTORY: As mentioned above. PAST SURGICAL HISTORY: He had a right hip replacement, left knee surgery and also had a periprosthetic fracture above the left knee and now he has a left tibia fracture. MEDICATIONS: The patient is on aspirin, Excedrin 0.5 mg p.o. p.m., calcium 1 tablet p.o. b.i.d., vitamin D 50 mcg p.o. daily, Lovenox 30 mg subcutaneous p.m., finasteride 5 mg p.o. p.m., lisinopril 20 mg p.m. and 10 mg in a.m., metoprolol succinate 12.5 mg p.o. b.i.d., Myrbetriq 25 mg p.o. a.m., CellCept 1000 mg p.o. b.i.d., [place] fish acid 1000 mg p.o. daily, pyridostigmine 60 mg p.o. b.i.d., turmeric 500 mg p.o. daily. FAMILY HISTORY: Significant for as per daughter, mother lived until age of 99. SOCIAL HISTORY: No smoking. Alcohol rarely. No drugs. REVIEW OF SYSTEMS: As per HPI. Rest of the review of systems is negative. PHYSICAL EXAMINATION: GENERAL: The patient is old and frail, very hard of hearing, not in acute distress. VITAL SIGNS: Temperature 37, pulse rate 74, respiratory rate 18, blood pressure 129/75, oxygen 94% on room air. HEENT: Pupils equal, round and reactive to light. Oral mucosa moist. NECK: No JVD or neck masses. CARDIOVASCULAR: S1 and S2 heard. Regular rate and rhythm. No murmur, no gallop. RESPIRATORY SYSTEM: Normal AP diameter. No accessory muscle use. No wheezing, no crackles. ABDOMEN: Soft, bowel sounds present, nontender, no distention. CENTRAL NERVOUS SYSTEM: Alert and awake. No facial droop. Speech is clear. Obeys simple commands. Moves extremities. EXTREMITIES: Left lower extremity is in a brace. No edema seen. Right lower extremity no erythema seen. Skin; mild macular rash seen in lower back. LABORATORY DATA: WBC 11.5, hemoglobin 12.3, hematocrit 37, platelets 436. PT 10.8, INR 1.1, APTT 27.9. Venous blood gas, pH of 7.47, pCO2 of 35, pO2 of 41, bicarbonate 25. Sodium 133, potassium 3.7, chloride 101, bicarbonate 26, BUN 21, creatinine 0.65, serum glucose 134, calcium 8.7, magnesium 1.9, total bilirubin 0.5, AST 14, ALT 16, alkaline phosphatase 155. Total creatine kinase 22. Troponin I less than 0.015. Lactic acid 0.9. Urinalysis, +1 ketones, +1 blood. SARS-CoV-[address] of the head: No acute findings. Chest x-ray: Possible infiltrate lesions in the bilateral lower lobes. EKG: Sinus rhythm with PACs at a rate of 73, right bundle-branch block, left anterior fascicular block. ASSESSMENT AND PLAN: This is an 89-year-old male who presents with weakness and cough and found to have bilateral pneumonia. 1. Bilateral pneumonia, most likely from aspiration pneumonia. Empirically started on Zosyn and doxycycline. Follow the cultures. Gentle fluids. Follow the response. Admit to med-telemetry. 2. History of myasthenia. The patient is on CellCept, which we will hold for pneumonia and continue with pyridostigmine. As per daughter, because the patient is drowsy and sleeping, he has not taken his pills and his myasthenia is acting up. We will consult neurology while the patient is in the hospital. 3. History of benign prostatic hyperplasia. Continue finasteride. 4. History of hypertension. Continue lisinopril and metoprolol. We will monitor the blood pressure. 5. Recent left tibial fracture. Physical therapy and occupational therapy when stable. Follow up with orthopedics. 6. Skin rash. mild Macular rash in lower back. Will monitor 7. Deep venous thrombosis prophylaxis, on Lovenox. DISPOSITION: Admit to med-tele. PT/OT prior to discharge. Social service to help with discharge planning. Level 1 full code. Job ID: [id number] MTDD
[2021-03-16] MEDS ORDERED: NITROGLYCERIN SL 0.4 MG/TAB TAB SL PRN (23:10)
[2021-03-16] MEDS ORDERED: POLYETHYLENE (MIRALAX) 17 GM PACK PO PRN (23:10)
[2021-03-16] MEDS ORDERED: PIPERACILL/TAZOBAC CONSULT ACTIVE PRN (23:10)
[2021-03-16] MEDS ORDERED: ACETAMINOPHEN 325 MG TAB PO PRN (23:10)
[2021-03-16] MEDS ORDERED: ONDANSETRON INJ 2 MG/ML 2 ML VIAL IV PRN (23:10)
[2021-03-16] MEDS ORDERED: SODIUM CHLORIDE 0.9% 1000ML 1,000 ML IV SCH (23:15)
[2021-03-17] MEDS ORDERED: PIPERACILLIN/TAZOBACTAM 3.375 GM in DEXTROSE 5% 100 ML IV ONE
[2021-03-17] MEDS ORDERED: DOXYCYCLINE HYCLATE 100 MG in DEXTROSE 5% 100 ML IV SCH
[2021-03-17] MEDS: PATIENT'S HEIGHT AND/OR WEIGHT NEEDED SCH ×3 (01:20→02:45)
[2021-03-17 05:57] LABS: Basophils # (auto) 0.04 K/uL (0-0.2); Basophils % (auto) 0.4 %; Eosinophils % (auto) 7.1 %; Hematocrit (blood only) 35.4 % (42-52); Hemoglobin 11.6 g/dL (14.0-18.0); Immature Granulocytes # (auto) 0.03 K/uL (0.00-0.02); Immature Granulocytes % (auto) 0.3 %; Lymphocytes # (auto) 1.07 K/uL (1.2-3.4); Lymphocytes % (auto) 10.9 %; Mean Corpuscular Hemoglobin 30.8 pg (25-34); Mean Corpuscular Hgb Conc 32.8 g/dL (32-36); Mean Corpuscular Volume 93.9 fL (80-100); Mean Platelet Volume 9.7 fL (7.4-10.4); Monocytes # (auto) 2.35 K/uL (0.11-0.59); Neutrophils # (auto) 5.62 K/uL (1.4-6.5); Neutrophils % (auto) 57.3 %; Platelet Count 394 K/uL (130-400); RDW Coefficient of Variation 13.6 % (11.5-14.5); RDW Standard Deviation 47.2 fL (36.4-46.3); Red Blood Count 3.77 M/uL (4.7-6.1); White Blood Count 9.81 K/uL (4.8-10.8)
[2021-03-17] MEDS: PIPERACILLIN/TAZOBACTAM 3.375 GM in DEXTROSE 5% 100 ML IV SCH ×2 (06:11→13:53)
[2021-03-17 06:24] LABS: BUN Creatinine Ratio 29.7 (10-20); Calcium 8.4 mg/dl (8.5-10.1); Creatinine Clr Calc Pharmacy 82.1 ml/min; Est GFR (African American) 101.3 ml/min; Est GFR (Non-African American) 87.4 ml/min; Magnesium 1.9 mg/dl (1.8-2.4); Potassium 3.5 mmol/L (3.5-5.1)
--- NOTE | 2021-03-17 08:07 | Electrocardiogram Report ---
Test Reason : Blood Pressure : / mmHG Vent. Rate : 073 BPM Atrial Rate : 073 BPM P-R Int : 206 ms QRS Dur : 124 ms QT Int : 400 ms P-R-T Axes : 107 -45 073 degrees QTc Int : 440 ms Sinus rhythm with Premature atrial complexes Right bundle branch block Left anterior fascicular block Possible Old Septal infarct Abnormal ECG When compared with ECG of 08-MAY-2017 17:42, Right bundle branch block now present Borderline Criteria for Septal infarct is now Present Confirmed by Deejay Kidd ([id number]) on 03/17/2021 8:07:30 AM Referred By: REFERRED SELF Confirmed By:Deejay Kidd
[2021-03-17] MEDS: lisinopril 10 MG TAB PO SCH (08:19)
[2021-03-17] MEDS: CHOLECALCIFEROL 1,000 UNITS 25 MCG TAB PO SCH (08:19)
[2021-03-17] MEDS: CALCIUM CARBONATE 1250MG TAB PO SCH ×2 (08:19→20:37)
[2021-03-17] MEDS: PYRIDOSTIGMINE BROMIDE 60 MG TAB PO SCH ×2 (08:20→20:35)
[2021-03-17] MEDS: METOPROLOL SUCC 25MG EXT REL TAB PO SCH ×2 (08:20→20:35)
[2021-03-17] MEDS: MIRABEGRON ER 25 MG TAB PO SCH (08:20)
[2021-03-17] MEDS ORDERED: NON-FORMULARY MEDICATION (Turmeric 400 mg Capsule) PO SCH (09:00)
[2021-03-17] MEDS: MYCOPHENOLATE MOFETIL 250 MG CAP PO SCH ×2 (10:16→21:14)
--- NOTE | 2021-03-17 12:23 | Neurology Consultation ---
Date of Consultation March 17, 2021 Assessment & Plan (1) Myasthenia gravis: 1. continue Cellcept 1000 mg twice daily 2. consult pulmonary for negative inspiratory force q shift 3. speech therapy for any swallowing issues- cleared from speech therapy 4. stop doxycycline can worsen MG symptoms 5. PT/OT for discharge needs (2) Weakness: 1. PT/OT for discharge needs (3) Pneumonia: 1. treat to culture avoid doxy Supervising Physician Co-Signing Physician Notes I have seen and discussed above patient with Dr Emmanuel Mackenzie, neurology I have interviewed and examined Odilon Riley today reviewed the above note and discussed his case with both Елена Bose PA-C and Dr. 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 After discharge she became more generally weak may be a little somnolent was brought to the hospital because he had more trouble with transfers yesterday yet really did not know problems with speech or swallowing and no additional motor weakness involving his extremities other than the left leg which is weak because of the fracture in the splint He was found to have a pneumonia with bibasilar infiltrates and is assumed to have an aspiration but speech and swallowing evaluation has not indicated any issues and is eating a full diet. He does have a slight cough probably due to pneumonia and has a slightly dysarthric speech pattern because he does not have his dentures but he has normal eye movements normal eye closure good facial strength protrudes the tongue in the midline palate moves in the midline neck flexor strength is excellent there is no proximal weakness in the upper extremities or the right lower extremity and respiratory has found no issues with his negative inspiratory force measurement He needs to continue his CellCept. He needs to have his pneumonitis treated but I have suggested that doxycycline not be used empirically as it is an antibiotic that can exacerbate myasthenia He needs to have his Mestinon continued and while in the hospital I would continue monitoring his negative inspiratory force every shift this to be certain that there is no episodic pulmonary compromise which would be hard to detect otherwise I do not think neurology needs to see him on a regular basis as he appears to be stable and I think his strength will improve once his pneumonia is treated but certainly if he does decline or there are some questions I would be happy to take another look at him in consultation The current clinical picture is not that of a myasthenic crisis but more of a global weakness due to a systemic illness Emmanuel Mackenzie MD History of Present Illness Reason for Consultation: weakness, hx of myasthena Requesting Physician: Solitario Garcia MD Attending Physician: Solitario Garcia MD History of Present Illness Odilon is an 89 year old male with PMH- myasthenia gravis, BPH, HTN, urinary incontinence, who was brought in from home because of weakness 03/16/2021. He has a left tibial fracture. On 02/18, he was admitted to the hospital near [place] and was operated on 02/19, and on 02/24, he was discharged to [facility] because his daughter lives in this area and then on 03/13, he was discharged home. Since return home he has been very weak and tired, not getting up, sleeping all the time and because he is very drowsy and sleepy, he is not taking his medications, which is making his myasthenia to get worse and he seemed to be somewhat choking on the food, coughing, bringing up a lot of phlegm but had no fever at home. He is not sure if he feels better because he has not been up and walking due to the left tibial fracture. denies CP, abdominal pain, new one sided weakness, N, V, no swallowing issues. + fatigued Allergies Allergy/AdvReac Type Severity Reaction Status Date / Time No Known Allergies Allergy Unverified 03/16/21 19:54 Home Medications Medication Instructions Recorded Confirmed Type aspirin-acetaminophen (buffered) 0.5 tab PO QPM 03/16/21 03/16/21 History 250 mg-250 mg tablet calcium 250 mg tablet 0 mg PO BID 03/16/21 03/16/21 History cholecalciferol (vitamin D3) 50 50 mcg PO DAILY 03/16/21 03/16/21 History mcg (2,000 unit) tablet (Vitamin D3) d-mannose 500 mg capsule 0 mg PO QAM 03/16/21 03/16/21 History enoxaparin 30 mg/0.3 mL 30 mg SUBCUT QPM 03/16/21 03/16/21 History subcutaneous syringe finasteride 5 mg tablet 5 mg PO QPM 03/16/21 03/16/21 History lisinopril 20 mg tablet 10 mg PO QAM 03/16/21 03/16/21 History lisinopril 20 mg tablet 20 mg PO QPM 03/16/21 03/16/21 History metoprolol succinate 25 mg 12.5 mg PO BID 03/16/21 03/16/21 History tablet,extended release 24 hr mirabegron 25 mg tablet,extended 25 mg PO QAM 03/16/21 03/16/21 History release 24 hr (Myrbetriq) mycophenolate mofetil 500 mg 1,000 mg PO BID 03/16/21 03/16/21 History tablet (CellCept) omega-3 fatty acids 1,000 mg PO DAILY 03/16/21 03/16/21 History pyridostigmine bromide 60 mg tablet 60 mg PO BID 03/16/21 03/16/21 History turmeric 400 mg capsule 500 mg PO DAILY 03/16/21 03/16/21 History Patient History Medical History BPH (benign prostatic hyperplasia) Hypertension Left tibial fracture Myasthenia gravis Social History Smoking Status: Former smoker Smoking End Date: 1971; Second Hand Exposure: No; Do You Dip or Chew Tobacco: No; Tobacco Cessation Education Requested by Patient: No Hx Alcohol Use: Yes Alcohol type: beer, wine and hard liquor Hx Substance Use: No Preferred Language: Estonian Communication Ability: Effective 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: No Beliefs That Will Affect Care: None Current Living Situation: Spouse Current Living Situation Comment: Lives with Other Information That Helps Us Care for You: No Feels Safe at Home: Yes Safety Concerns: Feels Safe At This Time Assistive Devices: Glasses Review of Systems Review of Systems: All systems reviewed & are unremarkable except as noted in HPI & below Physical Exam Physical Exam: Physical Exam: Constitutional: appearance nourished Ears, Nose, Mouth and Throat: mucous membranes moist, no injection and skin normal, eyes normal Cardiovascular: normal S-1 and S-2 and regular rate and rhythm Respiratory: course breath sounds Musculoskeletal: no peripheral edema and good distal pulses Skin: no stigmata of neurocutaneous disease noted and normal and intact Eyes: extraocular muscles intact (EOMI) and pupils equal, round and reactive to light (PERRL), no fatiguing of lids NEUROLOGIC EXAMINATION: Mental status: Alert and interactive Oriented to full date and location Oriented to person Speech fluent with no evidence of aphasia Cranial Nerves smile eye brow raise symmetric Reflexes: Deep tendon reflexes were symmetrical and graded 2/5. Sensory: intact to light and cool touch Coordination: finger to nose no bi pass Gait/Stance: Posture sitting in bed Motor: Negative for pronator drift of out stretched arms with eyes closed. 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) Vital Signs (Past 12 Hours) Vital Signs Temp Pulse Pulse Resp BP BP Pulse Ox 03/17/21 11:05 36.9 C 62 18 112/69 94 03/17/21 08:00 72 03/17/21 07:55 36.5 C 50 L 18 156/79 H 92 03/17/21 04:58 36.8 C 71 18 130/76 93 03/17/21 02:51 79 03/17/21 00:42 36.9 C 77 18 134/74 93 Laboratory Results Abnormal lab results 03/16/21 03/16/21 03/16/21 Range/Units 18:15 18:15 18:15 WBC 11.54 H (4.8-10.8) K/uL RBC 3.94 L (4.7-6.1) M/uL Hgb 12.3 L (14.0-18.0) g/dL Hct 37.0 L (42-52) % RDW Std Deviation 46.8 H (36.4-46.3) fL Plt Count 436 H (130-400) K/uL Neut # (Auto) 8.55 H (1.4-6.5) K/uL Lymph # (Auto) (1.2-3.4) K/uL [place] # (Auto) 0.97 H (0.11-0.59) K/uL Eos # (Auto) (0-0.5) K/uL Immature Gran # (Auto) 0.04 H (0.00-0.02) K/uL VBG pH 7.47 H (7.36-7.41) VBG pCO2 35 L (38-50) mmHg Sodium 133 L (136-145) mmol/L BUN 21 H (7-18) mg/dl BUN/Creatinine Ratio 33.0 H (10-20) Glucose 134 H (70-99) mg/dl Calcium (8.5-10.1) mg/dl AST 14 L (15-37) U/L Alkaline Phosphatase 155 H (45-117) U/L Total Creatine Kinase 22 L (39-308) U/L Albumin 2.8 L (3.4-5.0) gm/dl Albumin/Globulin Ratio 0.8 L (0.9-2) Urine Appearance (Clear) Urine Protein (Negative) Urine Ketones (Negative) Urine Blood (Negative) Urine RBC (Auto) (0-4) /hpf U Epithel Cells (Auto) (0-5) /lpf 03/16/21 03/17/21 03/17/21 Range/Units Unknown 05:29 05:29 WBC (4.8-10.8) K/uL RBC 3.77 L (4.7-6.1) M/uL Hgb 11.6 L (14.0-18.0) g/dL Hct 35.4 L (42-52) % RDW Std Deviation 47.2 H (36.4-46.3) fL Plt Count (130-400) K/uL Neut # (Auto) (1.4-6.5) K/uL Lymph # (Auto) 1.07 L (1.2-3.4) K/uL [place] # (Auto) 2.35 H (0.11-0.59) K/uL Eos # (Auto) 0.70 H (0-0.5) K/uL Immature Gran # (Auto) 0.03 H (0.00-0.02) K/uL VBG pH (7.36-7.41) VBG pCO2 (38-50) mmHg Sodium 134 L (136-145) mmol/L BUN 19 H (7-18) mg/dl BUN/Creatinine Ratio 29.7 H (10-20) Glucose 105 H (70-99) mg/dl Calcium 8.4 L (8.5-10.1) mg/dl AST (15-37) U/L Alkaline Phosphatase (45-117) U/L Total Creatine Kinase (39-308) U/L Albumin (3.4-5.0) gm/dl Albumin/Globulin Ratio (0.9-2) Urine Appearance Cloudy A (Clear) Urine Protein Trace H (Negative) Urine Ketones 1+ H (Negative) Urine Blood 1+ H (Negative) Urine RBC (Auto) 5-10 H (0-4) /hpf U Epithel Cells (Auto) 20-30 H (0-5) /lpf Diagnostic Findings CT head-No acute intracranial hemorrhage, no midline shift or space occupying lesions. CXR- Possible infiltrative lesions in bilateral lower lungs (1) Pneumonia Laterality: bilateral Lung location: lower lobe of lung Pneumonia type: due to other aerobic Gram-negative bacteria Qualified Code(s): J15.6 - Pneumonia due to other Gram-negative bacteria
--- NOTE | 2021-03-17 13:10 | Hospitalist Progress Note ---
Date of Service March 17, 2021 Assessment & Plan (1) Weakness: (2) Cough: Plan: ASSESSMENT AND PLAN: This is an 89-year-old male with history of myasthenia gravis, hypertension, BPH, urinary incontinence, recent right tibial fracture status post surgery Now presenting with weakness, cough, inability to take medications at home. 1. Bilateral pneumonia, possible aspiration related versus healthcare associated pneumonia --Patient was admitted to [facility] end of January 2021 for left tibial fracture, status post surgery Hemodynamically stable, saturating well on room air Chest x-ray showing bilateral lower lobe infiltrates Covid screen negative Nasal MRSA pending Blood cultures pending Sputum culture pending Continue Zosyn and doxycycline day #1 Add vancomycin if nasal MRSA is positive Tolerated pills and liquid breakfast today Speech therapy evaluation pending 2. History of myasthenia --Patient's regimen includes CellCept and pyridostigmine Unable to take above medications for the past few days secondary to weakness, lethargy --Discussed with neurologist Dr. Mackenzie We will resume CellCept and pyridostigmine today Respiratory therapist consulted for every shift NIF assessment 3. History of benign prostatic hyperplasia. Continue finasteride. 4. History of hypertension. Continue lisinopril and metoprolol. Monitor blood pressure 5. Recent left tibial fracture. Surgical site looks fine Physical therapy and occupational therapy when stable. Follow up with orthopedics. 6. Skin rash. mild Macular rash in lower back. Continue to monitor 7. Deep venous thrombosis prophylaxis, on Lovenox. DISPOSITION: Recently discharged from rehab, currently lives with daughter Elena, PT OT evaluation ordered May need to return to rehab prior to returning home Admission and Anticipated Discharge Date Admission Date: March 16, 2021 Subjective Follow-up for weakness, coughing, history of myasthenia gravis, etc. Seen sitting up in bed, comfortable, not in distress Oriented x2, answers most questions appropriately Hard of hearing, but very pleasant, cheerful States he feels improved today compared to yesterday during admission No shortness of breath, has occasional cough Was able to take his morning pills and breakfast, without any problems as per patient Denies abdominal pain, nausea vomiting, fevers or chills, changes to urination or bowel movement No headache, dizziness, chest pain, palpitations Has minimal discomfort over the left tibial surgical site Expresses desire to ambulate more soon No other symptoms Review of Systems Review of Systems: all noted and negative except for above Physical Exam Physical Exam: General- oriented x 2, not in distress, speaks in sentences with no effort or accessory muscle use Head- atraumatic Eyes- PERRL, EOMI, anicteric ENT- oropharynx clear Neck- supple, no JVD, no adenopathy, no thyromegaly; carotids +2/2, no bruits appreciated Lungs- clear to auscultation bilaterally, no rales/wheezes Heart- normal rate, regular rhythm; no murmur, no gallop, no rub appreciated Abdomen- normal bowel sounds, nondistended, soft, nontender, no masses or hepatosplenomegaly Extremities- no pretibial edema, no calf tenderness; peripheral pulses intact Left lower leg: Immobilizer in place, positive surgical scar on the left tibia medial side, wound healing well, no bleeding or discharge No leg edema/erythema/warmth/tenderness noted Right lower extremity: Essentially normal Neuro- alert, oriented x 2; CN 2-12 grossly intact except for decreased hearing; motor 5/5 bilaterally;sensation 100% on all extremities; no other gross focal neurologic deficits Skin- warm & dry Results & Data Results & Data ([facility]) Vital Signs (Past 12 Hours) Vital Signs Temp Pulse Pulse Resp BP BP Pulse Ox 03/17/21 11:05 36.9 C 62 18 112/69 94 03/17/21 08:00 72 03/17/21 07:55 36.5 C 50 L 18 156/79 H 92 03/17/21 04:58 36.8 C 71 18 130/76 93 03/17/21 02:51 79 all noted and reviewed including below
[2021-03-17] MEDS ORDERED: VANCOMYCIN CONSULT ACTIVE PRN (19:53)
[2021-03-17] MEDS: lisinopril 20 MG TAB PO SCH (20:36)
[2021-03-17] MEDS: FINASTERIDE 5 MG TAB PO SCH (20:36)
[2021-03-17] MEDS: ENOXAPARIN INJ 30 MG/0.3 ML SYR SQ SCH (20:37)
[2021-03-17] MEDS ORDERED: ACETAMINOPHEN PO SCH (21:00)
[2021-03-17] MEDS ORDERED: VANCOMYCIN HCL 1,500 MG in SODIUM CHLORIDE 0.9% 500 ML IV SCH (21:00)
[2021-03-17] MEDS ORDERED: ASPIRIN PO SCH (21:00)
--- NOTE | 2021-03-17 21:01 | Pharmacy Report ---
Pharmacy Abx Initial Consult - Date of Service March 17, 2021 - Pharmacy Dosing Scope Date of Consult: 03/17/21 Consultation requested by: Dr. Encarnacion Pharmacy is consulted to initiate VANCOMYCIN IV/PO dosing therapy, order appropriate labs and adjust drug dose/frequency. - Subjective The patient is a 89 year old M admitted on 03/16/21 21:37. - Objective Height: 5 ft 10 in Weight: 73.9 kg Vital Signs (Past 12hrs): Vital Signs Temp Pulse Pulse Resp BP BP Pulse Ox 03/17/21 19:08 36.7 C 75 18 105/64 93 03/17/21 15:56 67 03/17/21 15:42 37.0 C 64 20 118/75 95 03/17/21 11:05 36.9 C 62 18 112/69 94 Lab Results (24hrs): Laboratory Tests (24 Hours) 03/17/21 03/17/21 05:29 05:29 WBC 9.81 Neut # (Auto) 5.62 Creatinine 0.63 Est Cr Clr Drug Dosing 82.1 - Assessment & Plan Assessment 89 year old M receiving Vancomycin/Zosyn for PNA, nasal MRSA + Plan Vancomycin IV * Estimated PK Parameters: Vd 0.7 L/kg, [place] 0.058 hr-1, t1/2 12 hr * Loading dose: 1500 mg (20 mg/kg) * Maintenance dose: 750 mg IV (10 mg/kg) every 12 hours * Trough level ordered for 03/19/21 @ 0900. Piperacillin/tazobactam * 3.375g bolus administered over 30 minutes, then 3.375g IV extended infusion every 8 hours for CrCl greater than 20 mL/min. Pharmacy will continue to follow and will adjust dose/frequency as necessary. Thank you.
[2021-03-18] MEDS: PIPERACILLIN/TAZOBACTAM 3.375 GM in DEXTROSE 5% 100 ML IV SCH ×3 (02:08→17:27)
[2021-03-18 07:26] LABS: Creatinine Clr Calc Pharmacy 90.7 ml/min; Est GFR (African American) 105.5 ml/min
[2021-03-18] MEDS: METOPROLOL SUCC 25MG EXT REL TAB PO SCH ×2 (08:49→21:08)
[2021-03-18] MEDS: MIRABEGRON ER 25 MG TAB PO SCH (08:49)
[2021-03-18] MEDS: PYRIDOSTIGMINE BROMIDE 60 MG TAB PO SCH ×2 (08:49→21:08)
[2021-03-18] MEDS: lisinopril 10 MG TAB PO SCH (08:51)
[2021-03-18] MEDS: CHOLECALCIFEROL 1,000 UNITS 25 MCG TAB PO SCH (08:52)
[2021-03-18] MEDS: CALCIUM CARBONATE 1250MG TAB PO SCH ×2 (08:52→21:08)
[2021-03-18] MEDS: VANCOMYCIN HCL 750 MG in SODIUM CHLORIDE 0.9% 250 ML IV SCH ×2 (08:54→21:07)
[2021-03-18 09:26] LABS: Basophils # (auto) 0.04 K/uL (0-0.2); Basophils % (auto) 0.4 %; Eosinophils # (auto) 0.96 K/uL (0-0.5); Eosinophils % (auto) 9.2 %; Hematocrit (blood only) 35.2 % (42-52); Hemoglobin 11.5 g/dL (14.0-18.0); Immature Granulocytes # (auto) 0.06 K/uL (0.00-0.02); Immature Granulocytes % (auto) 0.6 %; Lymphocytes # (auto) 0.97 K/uL (1.2-3.4); Lymphocytes % (auto) 9.3 %; Mean Corpuscular Hemoglobin 30.9 pg (25-34); Mean Corpuscular Hgb Conc 32.7 g/dL (32-36); Mean Corpuscular Volume 94.6 fL (80-100); Mean Platelet Volume 10.5 fL (7.4-10.4); Monocytes # (auto) 2.28 K/uL (0.11-0.59); Monocytes % (auto) 21.9 %; Neutrophils % (auto) 58.6 %; Platelet Count 373 K/uL (130-400); RDW Coefficient of Variation 13.8 % (11.5-14.5); Red Blood Count 3.72 M/uL (4.7-6.1); White Blood Count 10.41 K/uL (4.8-10.8)
[2021-03-18 09:42] LABS: BUN Creatinine Ratio 24.7 (10-20); Calcium 8.7 mg/dl (8.5-10.1); Creatinine Clr Calc Pharmacy 82.1 ml/min; Est GFR (African American) 101.3 ml/min; Est GFR (Non-African American) 87.4 ml/min
[2021-03-18] MEDS: MYCOPHENOLATE MOFETIL 250 MG CAP PO SCH ×2 (11:00→22:34)
[2021-03-18] MEDS: POTASSIUM CHLORIDE PWD 20 MEQ PACK PO SCH (11:56)
[2021-03-18] MEDS ORDERED: BENZONATATE 100 MG CAPSULE PO PRN (12:53)
--- NOTE | 2021-03-18 12:55 | Hospitalist Progress Note ---
Date of Service March 18, 2021 Assessment & Plan (1) Weakness: (2) Cough: Plan: ASSESSMENT AND PLAN: This is an 89-year-old male with history of myasthenia gravis, hypertension, BPH, urinary incontinence, recent right tibial fracture status post surgery Now presenting with weakness, cough, inability to take medications at home. 1. Bilateral pneumonia, possible aspiration related versus healthcare associated pneumonia --Patient was admitted to [facility] end of January 2021 for left tibial fracture, status post surgery Hemodynamically stable, saturating well on room air Chest x-ray showing bilateral lower lobe infiltrates Covid screen negative Nasal MRSA positive for MRSA Blood cultures pending Sputum culture pending Continue vancomycin plus Zosyn day #2 Avoid doxycycline for pneumonia as this can exacerbate MG Add nebs every 6 hours, Mucinex, Flonase Speech therapy following On minced and moist diet 2. History of myasthenia --Patient's regimen includes CellCept and pyridostigmine Unable to take above medications for the past few days secondary to weakness, lethargy --Patient now alert, oriented --Discussed with neurologist Dr. Mackenzie resume CellCept and pyridostigmine Respiratory therapist consulted for every shift NIF assessment 3. History of benign prostatic hyperplasia. Continue finasteride. 4. History of hypertension. Continue lisinopril and metoprolol. Monitor blood pressure 5. Recent left tibial fracture. Surgical site looks fine Physical therapy and occupational therapy -left lower extremity nonweightbearing 6. Skin rash. mild Macular rash in lower back. Continue to monitor 7. Deep venous thrombosis prophylaxis, on Lovenox. DISPOSITION: Recently discharged from rehab, currently lives with daughter Elena, PT OT evaluation ordered May need to return to rehab prior to returning home Admission and Anticipated Discharge Date Admission Date: March 16, 2021 Subjective Follow-up for pneumonia, etc. Seen sitting up in bed, comfortable, not in distress Has been coughing today productive of clear sputum Denies shortness of breath Reports nasal congestion Denies fevers or chills Oriented x2, answers all questions appropriately No other symptoms Review of Systems Review of Systems: all noted and negative except for above Physical Exam Physical Exam: General- oriented x 2, not in distress, speaks in sentences with no effort or accessory muscle use Eyes- anicteric Neck- no JVD Lungs-mild crackles at bases, no wheezing Good air entry bilaterally Heart- normal rate, regular rhythm; no murmurs Abdomen- normal bowel sounds, nondistended, soft, nontender Extremities- Left lower extremity: Immobilizer in place no pretibial edema, no calf tenderness Neuro- alert, oriented x 2; no gross focal neurologic deficits Skin- warm & dry Results & Data Results & Data ([facility]) Vital Signs (Past 12 Hours) Vital Signs Temp Pulse Pulse Resp BP BP Pulse Ox 03/18/21 11:52 37.1 C 92 H 18 146/78 H 93 03/18/21 07:38 79 03/18/21 07:00 36.8 C 78 20 150/83 H 92 03/18/21 04:18 36.8 C 74 16 160/94 H 92 03/18/21 01:09 71 all noted and reviewed including below
[2021-03-18] MEDS ORDERED: XOPENEX/ATROVENT 1.25mg/0.5MG NEB COMBO NEB SCH (13:00)
[2021-03-18] MEDS: LEVALBUTEROL 1.25MG/0.5ML NEB INH SCH ×2 (13:11→19:11)
[2021-03-18] MEDS: IPRATROPIUM BROMIDE NEB SOLN 0.02% 2.5 ML VIAL INH SCH ×2 (13:11→19:11)
[2021-03-18] MEDS: guaiFENesin 600 MG TABCR PO SCH ×2 (13:42→21:09)
[2021-03-18] MEDS: FLUTICASONE PROPIONATE NA SPR 16 GM BTL SCH ×2 (13:42→21:09)
[2021-03-18] MEDS: FINASTERIDE 5 MG TAB PO SCH (21:08)
[2021-03-18] MEDS: lisinopril 20 MG TAB PO SCH (21:08)
[2021-03-18] MEDS: ENOXAPARIN INJ 30 MG/0.3 ML SYR SQ SCH (21:09)
[2021-03-19] MEDS: IPRATROPIUM BROMIDE NEB SOLN 0.02% 2.5 ML VIAL INH SCH ×4 (00:21→18:58)
[2021-03-19] MEDS: LEVALBUTEROL 1.25MG/0.5ML NEB INH SCH ×4 (00:21→18:58)
[2021-03-19] MEDS: PIPERACILLIN/TAZOBACTAM 3.375 GM in DEXTROSE 5% 100 ML IV SCH ×3 (02:54→18:19)
[2021-03-19] MEDS: guaiFENesin 600 MG TABCR PO SCH ×2 (08:03→21:50)
[2021-03-19] MEDS: PYRIDOSTIGMINE BROMIDE 60 MG TAB PO SCH ×2 (08:03→21:50)
[2021-03-19] MEDS: MIRABEGRON ER 25 MG TAB PO SCH (08:04)
[2021-03-19] MEDS: POTASSIUM CHLORIDE PWD 20 MEQ PACK PO SCH (08:04)
[2021-03-19] MEDS: CHOLECALCIFEROL 1,000 UNITS 25 MCG TAB PO SCH (08:04)
[2021-03-19] MEDS: FLUTICASONE PROPIONATE NA SPR 16 GM BTL SCH ×2 (08:04→21:50)
[2021-03-19] MEDS: METOPROLOL SUCC 25MG EXT REL TAB PO SCH ×2 (08:04→21:51)
[2021-03-19] MEDS: CALCIUM CARBONATE 1250MG TAB PO SCH ×2 (08:04→21:50)
[2021-03-19] MEDS: lisinopril 10 MG TAB PO SCH (08:04)
[2021-03-19] MEDS ORDERED: VANCOMYCIN TROUGH ONE (08:30)
[2021-03-19 09:25] LABS: Basophils # (auto) 0.02 K/uL (0-0.2); Basophils % (auto) 0.2 %; Eosinophils # (auto) 0.48 K/uL (0-0.5); Eosinophils % (auto) 4.9 %; Hematocrit (blood only) 36.7 % (42-52); Hemoglobin 12.1 g/dL (14.0-18.0); Immature Granulocytes # (auto) 0.03 K/uL (0.00-0.02); Immature Granulocytes % (auto) 0.3 %; Lymphocytes # (auto) 1.03 K/uL (1.2-3.4); Lymphocytes % (auto) 10.5 %; Mean Corpuscular Hemoglobin 31.3 pg (25-34); Mean Corpuscular Volume 94.8 fL (80-100); Mean Platelet Volume 10.3 fL (7.4-10.4); Monocytes % (auto) 14.3 %; Neutrophils # (auto) 6.85 K/uL (1.4-6.5); Neutrophils % (auto) 69.8 %; Platelet Count 390 K/uL (130-400); RDW Coefficient of Variation 13.8 % (11.5-14.5); RDW Standard Deviation 47.8 fL (36.4-46.3); Red Blood Count 3.87 M/uL (4.7-6.1); White Blood Count 9.81 K/uL (4.8-10.8)
[2021-03-19] MEDS: VANCOMYCIN HCL 750 MG in SODIUM CHLORIDE 0.9% 250 ML IV SCH (09:42)
[2021-03-19] MEDS: MYCOPHENOLATE MOFETIL 250 MG CAP PO SCH ×2 (09:42→21:52)
[2021-03-19 09:55] LABS: BUN Creatinine Ratio 14.5 (10-20); Calcium 8.5 mg/dl (8.5-10.1); Creatinine Clr Calc Pharmacy 58.1 ml/min; Est GFR (African American) 87.9 ml/min; Est GFR (Non-African American) 75.8 ml/min; Potassium 3.7 mmol/L (3.5-5.1)
--- NOTE | 2021-03-19 12:22 | Fluoroscopy Report ---
FL video swallow HISTORY: assess for aspiration TECHNIQUE: Video fluoroscopic evaluation of swallowing was performed in the AP and lateral projection s by the speech pathology staff. The patient is fed nectar-thick and thin liquid barium, a barium coa laurent wafer, and barium pudding. FLUOROSCOPY TIME: 2.5 minutes. NUMBER OF FLUOROSCOPY IMAGES: [id number] COMPARISON STUDY: None. FINDINGS: There is normal hyoid excursion. Epiglottic deflection is disorganized result in small aspiration (im age 89). IMPRESSION: 1. Small aspiration. 2. Please see the speech pathologist report for detailed findings and recommendations. ACT 112: Negative or not required by law. The above report was generated using voice recognition software. It may contain grammatical, syntax o r spelling errors. Electronically signed by: Madelaine Hussein DO 03/19/2021 12:20 PM
--- NOTE | 2021-03-19 14:50 | Pharmacy Report ---
Pharmacy Vanc AUC Short Note - Date of Service March 19, 2021 - Assessment & Plan Assessment * Mr Mejia is an 89 year old M receiving Vancomycin/Zosyn for treatment of pna. * Pertinent microbiologic data includes: Positive MRSA Nasal Swab; sputum cx pending; blood cx pending (negative to date) * Day #3 of antimicrobial therapy. * Vancomycin level obtained today, prior to the 3rd maintenance dose. Dose adjusted with guidance from [employer]. * Significant change in renal function today: SCr 0.57 --> 0.89. Will follow closely. Plan Vancomycin * AUC/ANNIKA is the preferred PK/PD target for vancomycin * AUC guided dosing is effective and associated with decreased risk of nephrotoxicity compared to traditional trough targets * Trough level of 7.6 mcg/mL is predicted to achieve target AUC/ANNIKA of 400-600 mg/L.hr and may be associated with a ~10-15% risk of nephrotoxicity * Change to Vancomycin 1000 mg IV every 12 hours * Will re-evaluate another vanc level in 1-2 days, or sooner if patient's condition/renal function changes significantly. Zosyn 3.375gm IV q8h Pharmacy will continue to follow and will adjust dose/frequency as necessary. Thank you.
--- NOTE | 2021-03-19 17:08 | Hospitalist Progress Note ---
Date of Service March 19, 2021 Assessment & Plan (1) Weakness: (2) Cough: Plan: 89 recommended myasthenia gravis diet will cover with mucolytic actually male with history of myasthenia gravis, hypertension, BPH, urinary incontinence, recent right tibial fracture status post surgery Now presenting with weakness, cough, inability to take medications at home. 1. Bilateral pneumonia, possible aspiration related versus healthcare associated pneumonia --Patient was admitted to [facility] end of January 2021 for left tibial fracture, status post surgery Hemodynamically stable, saturating well on room air Chest x-ray showing bilateral lower lobe infiltrates Covid screen negative Nasal MRSA positive for MRSA Blood culture and sputum culture no growth Currently on vancomycin plus Zosyn day #3 Avoid doxycycline for pneumonia as this can exacerbate MG Continue nebs every 6 hours, Mucinex, Flonase Speech on board Status post video swallow showed esophageal dysmotility Speech therapy following On minced and moist diet 2. History of myasthenia --Patient's regimen includes CellCept and pyridostigmine Unable to take above medications for the past few days secondary to weakness, lethargy --Patient now alert, oriented --Discussed with neurologist Dr. Mackenzie Continue CellCept and pyridostigmine Respiratory therapist consulted for every shift NIF assessment 3. History of benign prostatic hyperplasia. Continue finasteride. 4. History of hypertension. Continue lisinopril and metoprolol. Monitor blood pressure 5. Recent left tibial fracture. Surgical site looks fine Physical therapy and occupational therapy -left lower extremity nonweightbearing 6. Skin rash. mild Macular rash in lower back. Continue to monitor 7. Deep venous thrombosis prophylaxis, on Lovenox. DISPOSITION: Waiting for placement to rehab Admission and Anticipated Discharge Date Admission Date: March 16, 2021 Subjective Patient was seen and examined for follow-up of pneumonia and weakness Lying in bed with no acute distress eating his dinner Patient said his breathing is fine He said that his strength is slightly better Called the daughter to provide with update unfortunately no one answered Denies any chest pain, palpitation, shortness of breath and dizziness Review of Systems Review of Systems: All systems reviewed & are unremarkable except as noted in Subjective Physical Exam Physical Exam: General- No acute distress Head- atraumatic Eyes- PERRL, EOMI, ENT- oropharynx clear Neck- supple, no JVD Lungs- clear to auscultation Heart- regular rhythm; no murmur Abdomen- normal bowel sounds, soft, nontender Extremities- no calf tenderness Neuro- alert, oriented, PERRL, EOMI; no facial palsy; no dysarthria Skin- warm & dry Results & Data Results & Data ([facility]) Vital Signs (Past 12 Hours) Vital Signs Temp Pulse Pulse Resp BP Pulse Ox 03/19/21 16:15 83 03/19/21 15:15 37.2 C 82 20 124/68 92 03/19/21 13:14 75 20 95 03/19/21 11:59 37.1 C 71 20 142/70 H 93 03/19/21 07:59 65 03/19/21 07:32 37.1 C 74 20 146/74 H 98 03/19/21 07:25 82 18 92
[2021-03-19] MEDS ORDERED: VANCOMYCIN HCL 1,000 MG in SODIUM CHLORIDE 0.9% 250 ML IV SCH (21:00)
[2021-03-19] MEDS: FINASTERIDE 5 MG TAB PO SCH (21:50)
[2021-03-19] MEDS: lisinopril 20 MG TAB PO SCH (21:51)
[2021-03-19] MEDS: ENOXAPARIN INJ 30 MG/0.3 ML SYR SQ SCH (21:51)
[2021-03-19] MEDS ORDERED: MICONAZOLE NITRATE POWDER 43 GM EXT PRN (22:45)
[2021-03-20] MEDS: LEVALBUTEROL 1.25MG/0.5ML NEB INH SCH ×3 (00:31→13:28)
[2021-03-20] MEDS: IPRATROPIUM BROMIDE NEB SOLN 0.02% 2.5 ML VIAL INH SCH ×3 (00:31→13:28)
[2021-03-20] MEDS: PIPERACILLIN/TAZOBACTAM 3.375 GM in DEXTROSE 5% 100 ML IV SCH ×2 (01:27→11:13)
[2021-03-20 07:22] LABS: Creatinine Clr Calc Pharmacy 92.3 ml/min; Est GFR (African American) 106.3 ml/min; Est GFR (Non-African American) 91.7 ml/min
[2021-03-20] MEDS ORDERED: VANCOMYCIN HCL 1,250 MG in SODIUM CHLORIDE 0.9% 250 ML IV SCH (08:00)
[2021-03-20] MEDS: METOPROLOL SUCC 25MG EXT REL TAB PO SCH (09:12)
[2021-03-20] MEDS: MIRABEGRON ER 25 MG TAB PO SCH (09:12)
[2021-03-20] MEDS: CHOLECALCIFEROL 1,000 UNITS 25 MCG TAB PO SCH (09:12)
[2021-03-20] MEDS: CALCIUM CARBONATE 1250MG TAB PO SCH (09:12)
[2021-03-20] MEDS: MYCOPHENOLATE MOFETIL 250 MG CAP PO SCH (09:12)
[2021-03-20] MEDS: guaiFENesin 600 MG TABCR PO SCH (09:13)
[2021-03-20] MEDS: lisinopril 10 MG TAB PO SCH (09:13)
[2021-03-20] MEDS: FLUTICASONE PROPIONATE NA SPR 16 GM BTL SCH (09:13)
[2021-03-20] MEDS: PYRIDOSTIGMINE BROMIDE 60 MG TAB PO SCH (09:13)
[2021-03-20] MEDS: POTASSIUM CHLORIDE PWD 20 MEQ PACK PO SCH (09:13)
--- NOTE | 2021-03-20 16:13 | Discharge Summary ---
Date of Service March 20, 2021 Admission HPI Per Admitting Provider CHIEF COMPLAINT: Weakness. HISTORY OF PRESENT ILLNESS: This is an 89-year-old male with past medical history significant for myasthenia gravis, BPH, hypertension, urinary incontinence, who was brought in from home because of weakness. The patient is not [facility]. As per the daughter, he has a left tibial fracture. On 02/18, he was admitted to the hospital [place] [address] of [place] and was operated on 02/19, and on 02/24, he was discharged to [facility] because his daughter lives in this area and on 03/13, he was discharged home. Since coming home, the patient is very weak and tired, not getting up, sleeping all the time and because he is very drowsy and sleepy, he is not taking his medications, which is making his myasthenia to get worse and he seemed to be somewhat choking on the food, coughing, bringing up a lot of phlegm. No fevers at home. The patient is currently very hard of hearing, but denies any pain anywhere. Denies any nausea, denies any abdominal discomfort. He had normal bowel and bladder movements. Otherwise, appetite is okay. Denies any chest pain or shortness of breath. Has some stuffy nose. Admission Exam Per Admitting Provider GENERAL: The patient is old and frail, very hard of hearing, not in acute distress. VITAL SIGNS: Temperature 37, pulse rate 74, respiratory rate 18, blood pressure 129/75, oxygen 94% on room air. HEENT: Pupils equal, round and reactive to light. Oral mucosa moist. NECK: No JVD or neck masses. CARDIOVASCULAR: S1 and S2 heard. Regular rate and rhythm. No murmur, no gallop. RESPIRATORY SYSTEM: Normal AP diameter. No accessory muscle use. No wheezing, no crackles. ABDOMEN: Soft, bowel sounds present, nontender, no distention. CENTRAL NERVOUS SYSTEM: Alert and awake. No facial droop. Speech is clear. Obeys simple commands. Moves extremities. EXTREMITIES: Left lower extremity is in a brace. No edema seen. Right lower extremity no erythema seen. Skin; mild macular rash seen in lower back. Principal Diagnosis thenia History of benign prostatic hyperplasia. History of hypertension. Recent left tibial fracture. Discharge Exam General- No acute distress Head- atraumatic Eyes- PERRL, EOMI, ENT- oropharynx clear Neck- supple, no JVD Lungs- clear to auscultation Heart- regular rhythm; no murmur Abdomen- normal bowel sounds, soft, nontender Extremities- no calf tenderness Neuro- alert, oriented, PERRL, EOMI; no facial palsy; no dysarthria Skin- warm & dry Discharge Data Allergies Allergy/AdvReac Type Severity Reaction Status Date / Time No Known Allergies Allergy Unverified 03/16/21 19:54 Consultations 03/16/21 19:50 ED Decision to Admit Stat 03/17/21 08:00 Consult Neurology Routine Ordered Studies 03/16/21 17:54 CT head/brain wo con Stat 03/19/21 11:00 FL video swallow Routine FL video swallow HISTORY: assess for aspiration TECHNIQUE: Video fluoroscopic evaluation of swallowing was performed in the AP and lateral projections by the speech pathology staff. The patient is fed nectar-thick and thin liquid barium, a barium coated wafer, and barium pudding. FLUOROSCOPY TIME: 2.5 minutes. NUMBER OF FLUOROSCOPY IMAGES: [id number] COMPARISON STUDY: None. FINDINGS: There is normal hyoid excursion. Epiglottic deflection is disorganized result in small aspiration (image 114). IMPRESSION: 1. Small aspiration. 2. Please see the speech pathologist report for detailed findings and recommendations. ACT 112: Negative or not required by law. The above report was generated using voice recognition software. It may contain grammatical, syntax or spelling errors. Electronically signed by: Madelaine Hussein DO 03/19/2021 12:20 PM Dictated: 03/19/21 1214Transcribed: 03/19/[address] head/brain wo con CLINICAL HISTORY: weak COMPARISON STUDY: No previous studies for comparison. TECHNIQUE: Axial CT of the brain is performed from the vertex to the skull base. IV contrast was not administered for this examination. A dose lowering technique was utilized adhering to the principles of ALARA. CT DOSE: 614.27 mGy.cm FINDINGS: No intra or extra-axial mass lesions are visualized. There is no CT evidence of acute cortical infarction. There is no evidence of midline shift. There is no acute hemorrhage. No acute depressed calvarial fractures are visualized. There are patchy white matter hypodensities likely on a small vessel basis. There is no evidence of pathologic ventricular dilatation. There is no evidence of acute sinusitis IMPRESSION: No acute intracranial hemorrhage, no midline shift or space occupying lesions. ACT 112: Negative or not required by law. The above report was generated using voice recognition software. It may contain grammatical, syntax or spelling errors. Electronically signed by: Madelaine Hussein DO 03/16/2021 7:01 PM Dictated: 03/16/211858Transcribed: 03/16/211858 XR chest 1V portable CLINICAL HISTORY: weakness COMPARISON STUDY: May 08, 2017 FINDINGS: No pneumothorax. No pleural effusion. Hazy and reticular opacities are seen in bilateral lower lungs, might represent scattered atelectasis, chronic fibrosis or superimposed infiltrative lesions. Cardiomediastinal silhouette is within normal limits in size. No significant pulmonary vascular congestion.. Aorta is tortuous and calcified. Osseous structures: Degenerative changes of the spine. IMPRESSION: 1. Possible infiltrative lesions in bilateral lower lungs ACT 112: Negative or not required by law. The above report was generated using voice recognition software. It may contain grammatical, syntax or spelling errors. Electronically signed by: Madelaine Hussein DO 03/16/2021 6:10 PM Dictated: 03/16/211804Transcribed: 03/16/211804 Hospital Course (1) Weakness: (2) Cough: 89 recommended myasthenia gravis diet will cover with mucolytic actually male with history of myasthenia gravis, hypertension, BPH, urinary incontinence, recent right tibial fracture status post surgery Now presenting with weakness, cough, inability to take medications at home. 1. Bilateral pneumonia, possible aspiration related versus healthcare associated pneumonia --Patient was admitted to [facility] end of January 2021 for left tibial fracture, status post surgery Hemodynamically stable, saturating well on room air Chest x-ray showing bilateral lower lobe infiltrates Covid screen negative Nasal MRSA positive for MRSA Blood culture and sputum culture no growth Currently on vancomycin plus Zosyn day #3 Avoid doxycycline for pneumonia as this can exacerbate MG Continue nebs every 6 hours, Mucinex, Flonase Speech on board Status post video swallow showed esophageal dysmotility Speech therapy following On minced and moist diet 2. History of myasthenia --Patient's regimen includes CellCept and pyridostigmine Unable to take above medications for the past few days secondary to weakness, lethargy --Patient now alert, oriented --Discussed with neurologist Dr. Mackenzie Continue CellCept and pyridostigmine Respiratory therapist consulted for every shift NIF assessment 3. History of benign prostatic hyperplasia. Continue finasteride. 4. History of hypertension. Continue lisinopril and metoprolol. Monitor blood pressure 5. Recent left tibial fracture. Surgical site looks fine Physical therapy and occupational therapy -left lower extremity nonweightbearing 6. Skin rash. mild Macular rash in lower back. Continue to monitor 7. Deep venous thrombosis prophylaxis, on Lovenox. DISPOSITION: Waiting for placement to rehab Total Time Total Time Spent Total Time Spent (In Minutes): 35 minutes Discharge Plan Discharge Items Patient Disposition: Transfer Inpatient Rehab Fac Reason For Visit: WEAKNESS Discharge Diagnosis: Pneumonia Weakness: Cough: History of myasthenia History of benign prostatic hyperplasia. History of hypertension. Recent left tibial fracture. Condition on Discharge: Good Activity: Resume your previous activity Non-emergency contact: Primary Care Provider Call non-emergency contact if: you have any medication questions Follow-up/Referrals: Eber Encarnacion DO [Primary Care Provider] - Diet: Heart Healthy Diet Texture: Easy to Chew Addtl Attending Provider Instructions: Follow up with your primary care provider at rehab Continue Physical therapy and occupational therapy Follow up with neurology as needed Continue left lower extremity nonweightbearing Follow up with orthopedic about when to increase activity Complete the course of the antibiotic Fall and aspiration precaution Continue Moist and minced diet Ok to place follow if develop any urinary retention Check BMP in 1 week to monitor your electrolytes Pending Studies at Discharge: No Stand-Alone Forms: My [facility] Skilled Items Patient informed of condition?: Yes DNR: No Discharge Level of Care: Acute rehab Communicable Disease: No Discharge Prognosis: Stable Lines: None Urinary Catheter: No Medications and DC Order Prescriptions: New guaifenesin 200 mg tablet 200 mg PO TID PRN (Reason: congestion/cough) Qty: 15 RF: 0 fluticasone propionate 50 mcg/actuation [place]yer,Suspension 1 spray NA BID 5 Days Qty: 1 RF: 0 potassium chloride 20 mEq packet 20 meq PO DAILY Qty: 30 RF: 0 Continued lisinopril 20 mg tablet 20 mg PO QPM RF: 0 lisinopril 20 mg tablet 10 mg PO QAM RF: 0 mycophenolate mofetil [CellCept] 500 mg Tablet 1,000 mg PO BID RF: 0 calcium 250 mg Tablet 0 mg PO BID RF: 0 metoprolol succinate 25 mg tablet extended release 24 hr 12.5 mg PO BID RF: 0 finasteride 5 mg tablet 5 mg PO QPM RF: 0 enoxaparin 30 mg/0.3 mL syringe 30 mg subcut QPM RF: 0 omega-3 fatty acids Capsule 1,000 mg PO DAILY RF: 0 aspirin-acetaminophen (buffer) 250-250 mg Tablet 0.5 tab PO QPM RF: 0 cholecalciferol (vitamin D3) [Vitamin D3] 50 mcg (2,000 unit) Tablet 50 mcg PO DAILY RF: 0 Myrbetriq 25 mg tablet extended release 24 hr 25 mg PO QAM RF: 0 turmeric 400 mg Capsule 500 mg PO DAILY RF: 0 d-mannose 500 mg Capsule 0 mg PO QAM RF: 0 pyridostigmine bromide 60 mg tablet 60 mg PO BID RF: 0 Discharge Orders: Discharge Order (Routine); Ordered 03/20/21 Ordered By: Mike Alexander Admission Data Admit Date/Time: 03/16/21 21:37 Attending Provider: Mike Alexander Admit Provider: Farshad Encarnacion Primary Care Provider: Eber Encarnacion Other Providers: Farshad Encarnacion ; Елена Bose ; Emmanuel Mackenzie ; Елена Collado ; Wilfredo Curry ; [facility] ; Solitario Garcia Other Interventions: Discharge Summary Assessment (RN) Last Done: 03/20/21 15:51
== END 2021-03-20 16:00 | DRG 179 ==
LOC: ED 17:00 → SUATTDRO 21:37 → 2N 21:37